=== PATIENT | male | born 1950 | race Caucasian/White ===

== ENCOUNTER 2018-08-16 23:53 | Inpatient (IN) ==
--- NOTE | 2018-08-17 00:09 | Emergency Department Note ---
Disposition Clinical Impression: Inability to perform activities of daily living, Generalized weakness, Frail elderly Altered mental status, unspecified Qualifiers: Altered mental status type: unspecified Qualified Code(s): R41.82 - Altered mental status, unspecified Fall Qualifiers: Encounter type: initial encounter Qualified Code(s): W19.XXXA - Unspecified fall, initial encounter Disposition: Admitted As Inpatient Referrals: NONE,PCP [Primary Care Provider] - Forms: ED Satisfaction Letter Time of Disposition: 03:14 Fall HPI - General Chief Complaint: ED Fall Stated Complaint: fall Time Seen by Provider: 08/17/18 00:04 Source: patient, EMS Mode of arrival: EMS Limitations: altered mental status Nursing Notes Reviewed: Yes Vital Signs Reviewed: Yes - History of Present Illness HPI Narrative: 67-year-old male presents by EMS from home for evaluation of a supposedly fall injury. According to EMS report, the patient lives with his brother EMS reported to the patient's nurse that the brother stated he had no intent of coming to the emergency department while the patient was being evaluated. Details of the fall are unclear. Although the patient denies any pain or injury at this time, he does appear quite altered, and as such, is not a reliable historian. Details of the fall are unclear. At the time of his arrival, he complains of no pain. Pt Subjective Complaint: fall Onset (ago): unknown Loss of Consciousness: unsure Prolonged Down Time?: unclear Context: unknown - Related Data Allergies Allergy/AdvReac Type Severity Reaction Status Date / Time Unable to Assess Allergy Unverified 08/17/18 00:19 Review of Systems: As Per HPI Limitations: ROS unobtainable due to patients medical condition (Altered mental status) Fall PMH - Past Medical History Medical history: Reports: other - Social History Smoking Status: Current every day smoker Alcohol use: Reports: none Drug use: Reports: none Physical Exam - General Limitations: no limitations General appearance: alert, in no apparent distress - Head Head exam: atraumatic, normocephalic, normal inspection - Expanded Head Exam Head exam physicial: Absent: laceration, abrasion, contusion, hematoma, raccoon eyes, Brumfield's sign - Eye Eye exam: Present: PERRL, scleral icterus (Mild) - Expanded Eye Exam Pupils: Bilateral: regular, round, reactive, size (2) - ENT ENT exam: mucous membranes dry - Neck Neck exam: Present: normal inspection, full ROM. Absent: tenderness - Chest Chest inspection: Present: normal inspection, symmetric chest wall rise - Respiratory Respiratory exam: Present: normal lung sounds bilaterally. Absent: respiratory distress, wheezes, stridor, accessory muscle use, prolonged expiratory phase - Cardiovascular Cardiovascular exam: Present: regular rate, normal rhythm, normal heart sounds - Abdominal Exam Abdominal exam: Present: soft, Non-Tender, normal bowel sounds - Rectal Exam It Applications Developer present during exam: Yes (DARBY Riley) Rectal exam: Absent: black stool, bloody stool, hemorrhoids, mass, tenderness - Extremities Exam Extremities exam: Present: normal inspection, full ROM. Absent: tenderness, pedal edema - Neurological Exam Neurological exam: Present: alert - Expanded Neurological Exam Coma Scale Eye Opening: Spontaneous Coma Scale Motor Response: Localizes to Pain Coma Scale Verbal Response: Confused Coma Scale Total: 13 - Skin Skin exam: Present: warm, dry, intact Course Course Narrative: 1205: The patient has no previous visits listed to this emergency department. Prior medical history is unknown at this time. I attempted to contact the number listed as the patient's emergency contact however this number was out of service. [id number]: The patient's brother in which he lives with his bedside. I have had discussion with the patient's brother. The patient's brother states that the patient has had multiple falls over the course of the past 3 weeks. He also states that he has noticed an increase in generalized weakness at home. He states the patient has no significant past medical history. He is not on any daily medications. The brother denies any alcohol or tobacco use at home. He does state that the patient has not been to a family doctor in "years". The brother does go on to state that the patient is having a difficult time caring for himself. The patient's brother also states that he himself is having a difficult time opening with the patient's care at home due to his own medical problems. 0245: I spoke with Dr. Molina, hospitalist on-call. He has accepted the patient for permission of the hospitalist care for further observation and management. Vital Signs Temperature 98.0 F 08/16/18 23:57 Pulse Rate 96 08/16/18 23:57 Respiratory Rate 18 08/16/18 23:57 Blood Pressure 154/90 08/16/18 23:57 O2 Sat by Pulse Oximetry 98 08/16/18 23:57 Temperature 98.0 F 08/16/18 23:57 Pulse Rate 92 08/17/18 02:58 Respiratory Rate 18 08/17/18 02:58 Blood Pressure 161/91 08/17/18 02:58 O2 Sat by Pulse Oximetry 100 08/17/18 02:58 Oxygen Delivery Oxygen Delivery Room Air Fall - Medical Records Medical records reviewed: Yes I reviewed the patient's medical records. - Lab Data Lab results reviewed: Yes I reviewed the patient's lab results. Result diagrams: 08/17/18 00:06 08/17/18 00:06 Lab Results 08/17/18 08/17/18 08/17/18 Range/Units 00:06 00:06 00:06 WBC 8.1 (4.3-11.1) K/mcL RBC 2.74 L (4.19-5.50) M/mcL Hgb 8.1 L (12.9-16.9) g/dL Hct 25.3 L (37.5-50.1) % MCV 92.3 (83.0-100.0) fL MCH 29.6 (28.0-33.3) pg MCHC 32.0 (31.6-35.5) g/dL RDW 15.9 H (11.5-14.5) % Plt Count 183 (140-400) K/mcL MPV 9.4 (9.4-12.4) fL Immature Gran % 0.5 (0-4) % Seg Neutrophils % 85.1 % Lymphocytes % 9.6 % Monocytes % 3.9 % Eosinophils % 0.7 % Basophils % 0.2 % Neutrophils # 6.9 (1.6-8.9) K/mcL Lymphocytes # 0.8 (0.6-4.6) K/mcL Monocytes # 0.3 (0.0-1.3) K/mcL Eosinophils # 0.1 (0.0-0.6) K/mcL Basophils # 0.0 (0.0-0.2) K/mcL PT 13.5 H (9.4-12.1) Seconds INR 1.2 APTT 29.6 (26.0-36.0) Seconds Sodium 145 (136-145) mEq/L Potassium 3.6 (3.5-5.1) mEq/L Chloride 112 H (98-107) mEq/L Carbon Dioxide 24 (23-29) mEq/L BUN 26 H (8-23) mg/dL Creatinine 1.56 H (0.70-1.30) mg/dL Est GFR ( Amer) 54 L (> 60) Est GFR (Non-Af Amer) 44 L (> 60) BUN/Creatinine Ratio 17 (6-26) Glucose 114 H (70-105) mg/dL Calculated Osmolality 306 H (280-300) Calcium 8.9 (8.6-10.3) mg/dL Total Bilirubin 1.9 H (0.3-1.0) mg/dL Direct Bilirubin 0.6 H (0.0-0.2) mg/dL Indirect Bilirubin 1.3 H (0.0-1.2) mg/dL AST 18 (13-39) Units/L ALT 15 (7-52) Units/L Alkaline Phosphatase 60 (34-104) Units/L Ammonia (16-53) mcmol/L Creatine Kinase 184 (30-223) Units/L Troponin I < 0.03 (< 0.04) ng/mL Serum Total Protein 6.2 L (6.4-8.9) g/dL Albumin 3.3 L (3.5-5.7) g/dL Globulin 2.9 (2.4-3.5) g/dL Albumin/Globulin Ratio 1.1 (1.1-2.2) Urine Color (Yellow) Urine Clarity (Clear) Urine pH (5.0-8.0) pH Units Ur Specific [place] (1.010-1.025) Urine Protein (Neg-Trace) mg/dL Urine Glucose (UA) (Normal) mg/dL Urine Ketones (Negative) mg/dL Urine Blood (Negative) Urine Nitrite (Negative) Urine Bilirubin (Negative) Urine Urobilinogen (Normal) mg/dL Ur Leukocyte Esterase (Negative) Urine Microscopic RBC (0-3) per hpf Urine Microscopic WBC (0-3) per hpf Ur Squamous Epith Cells (None-Few) per lpf Urine Bacteria (None-Few) per hpf Hyaline Casts (None-Few) per lpf Ur Culture Indicated? (NO) Stool Occult Bld Scrn (Negative) Urine Opiates Screen (Zgcrco=704) ng/mL Ur Barbiturates Screen (Rprzib=877) ng/mL Ur Phencyclidine Scrn (Cutoff=25) ng/mL Ur Amphetamines Screen (Stswfw=1762) ng/mL U Benzodiazepines Scrn (Xwndua=127) ng/mL Urine Cocaine Screen (Cutoff= 300) ng/mL U Marijuana (THC) Screen (Cutoff = 50) ng/mL Ur Drug Screen Interp Ethyl Alcohol < 10 (Less than 10) mg/dL 08/17/18 08/17/18 08/17/18 Range/Units 00:42 02:19 02:19 WBC (4.3-11.1) K/mcL RBC (4.19-5.50) M/mcL Hgb (12.9-16.9) g/dL Hct (37.5-50.1) % MCV (83.0-100.0) fL MCH (28.0-33.3) pg MCHC (31.6-35.5) g/dL RDW (11.5-14.5) % Plt Count (140-400) K/mcL MPV (9.4-12.4) fL Immature Gran % (0-4) % Seg Neutrophils % % Lymphocytes % % Monocytes % % Eosinophils % % Basophils % % Neutrophils # (1.6-8.9) K/mcL Lymphocytes # (0.6-4.6) K/mcL Monocytes # (0.0-1.3) K/mcL Eosinophils # (0.0-0.6) K/mcL Basophils # (0.0-0.2) K/mcL PT (9.4-12.1) Seconds INR APTT (26.0-36.0) Seconds Sodium (136-145) mEq/L Potassium (3.5-5.1) mEq/L Chloride (98-107) mEq/L Carbon Dioxide (23-29) mEq/L BUN (8-23) mg/dL Creatinine (0.70-1.30) mg/dL Est GFR ( Amer) (> 60) Est GFR (Non-Af Amer) (> 60) BUN/Creatinine Ratio (6-26) Glucose (70-105) mg/dL Calculated Osmolality (280-300) Calcium (8.6-10.3) mg/dL Total Bilirubin (0.3-1.0) mg/dL Direct Bilirubin (0.0-0.2) mg/dL Indirect Bilirubin (0.0-1.2) mg/dL AST (13-39) Units/L ALT (7-52) Units/L Alkaline Phosphatase (34-104) Units/L Ammonia 20 (16-53) mcmol/L Creatine Kinase (30-223) Units/L Troponin I (< 0.04) ng/mL Serum Total Protein (6.4-8.9) g/dL Albumin (3.5-5.7) g/dL Globulin (2.4-3.5) g/dL Albumin/Globulin Ratio (1.1-2.2) Urine Color Dark Yellow (Yellow) Urine Clarity Cloudy A (Clear) Urine pH 5.0 (5.0-8.0) pH Units Ur Specific [place] 1.024 (1.010-1.025) Urine Protein Negative (Neg-Trace) mg/dL Urine Glucose (UA) Normal (Normal) mg/dL Urine Ketones Trace H (Negative) mg/dL Urine Blood Negative (Negative) Urine Nitrite Negative (Negative) Urine Bilirubin Moderate H (Negative) Urine Urobilinogen Normal (Normal) mg/dL Ur Leukocyte Esterase Trace H (Negative) Urine Microscopic RBC 0-3 (0-3) per hpf Urine Microscopic WBC 0-3 (0-3) per hpf Ur Squamous Epith Cells Moderate H (None-Few) per lpf Urine Bacteria None Seen (None-Few) per hpf Hyaline Casts None Seen (None-Few) per lpf Ur Culture Indicated? YES A (NO) Stool Occult Bld Scrn (Negative) Urine Opiates Screen Negative (Pvwngk=068) ng/mL Ur Barbiturates Screen Negative (Puiboj=665) ng/mL Ur Phencyclidine Scrn Negative (Cutoff=25) ng/mL Ur Amphetamines Screen Negative (Omsuai=4042) ng/mL U Benzodiazepines Scrn Negative (Vatpxm=571) ng/mL Urine Cocaine Screen Negative (Cutoff= 300) ng/mL U Marijuana (THC) Screen Negative (Cutoff = 50) ng/mL Ur Drug Screen Interp See Below Ethyl Alcohol (Less than 10) mg/dL 08/17/18 Range/Units 03:08 WBC (4.3-11.1) K/mcL RBC (4.19-5.50) M/mcL Hgb (12.9-16.9) g/dL Hct (37.5-50.1) % MCV (83.0-100.0) fL MCH (28.0-33.3) pg MCHC (31.6-35.5) g/dL RDW (11.5-14.5) % Plt Count (140-400) K/mcL MPV (9.4-12.4) fL Immature Gran % (0-4) % Seg Neutrophils % % Lymphocytes % % Monocytes % % Eosinophils % % Basophils % % Neutrophils # (1.6-8.9) K/mcL Lymphocytes # (0.6-4.6) K/mcL Monocytes # (0.0-1.3) K/mcL Eosinophils # (0.0-0.6) K/mcL Basophils # (0.0-0.2) K/mcL PT (9.4-12.1) Seconds INR APTT (26.0-36.0) Seconds Sodium (136-145) mEq/L Potassium (3.5-5.1) mEq/L Chloride (98-107) mEq/L Carbon Dioxide (23-29) mEq/L BUN (8-23) mg/dL Creatinine (0.70-1.30) mg/dL Est GFR ( Amer) (> 60) Est GFR (Non-Af Amer) (> 60) BUN/Creatinine Ratio (6-26) Glucose (70-105) mg/dL Calculated Osmolality (280-300) Calcium (8.6-10.3) mg/dL Total Bilirubin (0.3-1.0) mg/dL Direct Bilirubin (0.0-0.2) mg/dL Indirect Bilirubin (0.0-1.2) mg/dL AST (13-39) Units/L ALT (7-52) Units/L Alkaline Phosphatase (34-104) Units/L Ammonia (16-53) mcmol/L Creatine Kinase (30-223) Units/L Troponin I (< 0.04) ng/mL Serum Total Protein (6.4-8.9) g/dL Albumin (3.5-5.7) g/dL Globulin (2.4-3.5) g/dL Albumin/Globulin Ratio (1.1-2.2) Urine Color (Yellow) Urine Clarity (Clear) Urine pH (5.0-8.0) pH Units Ur Specific [place] (1.010-1.025) Urine Protein (Neg-Trace) mg/dL Urine Glucose (UA) (Normal) mg/dL Urine Ketones (Negative) mg/dL Urine Blood (Negative) Urine Nitrite (Negative) Urine Bilirubin (Negative) Urine Urobilinogen (Normal) mg/dL Ur Leukocyte Esterase (Negative) Urine Microscopic RBC (0-3) per hpf Urine Microscopic WBC (0-3) per hpf Ur Squamous Epith Cells (None-Few) per lpf Urine Bacteria (None-Few) per hpf Hyaline Casts (None-Few) per lpf Ur Culture Indicated? (NO) Stool Occult Bld Scrn Negative (Negative) Urine Opiates Screen (Fulmsx=708) ng/mL Ur Barbiturates Screen (Csilqq=393) ng/mL Ur Phencyclidine Scrn (Cutoff=25) ng/mL Ur Amphetamines Screen (Htjxyg=6318) ng/mL U Benzodiazepines Scrn (Epqvgk=894) ng/mL Urine Cocaine Screen (Cutoff= 300) ng/mL U Marijuana (THC) Screen (Cutoff = 50) ng/mL Ur Drug Screen Interp Ethyl Alcohol (Less than 10) mg/dL - Radiology Data Radiology results reviewed: Yes I reviewed the patient's radiology results. Cervical Spine CT 08/17/18 00:06 IMPRESSION: Degenerative changes with no acute cervical spine fracture. There is slight posterior position of the tip of the clivus in relation to the odontoid process. There is spondylosis/calcification adjacent to the tip of the clivus and this finding is likely chronic. Correlation with MRI of the craniocervical junction may be helpful. Motion degraded study. D/ / Mihir Messina MD / Mihir Messina MD Interpreting Provider: Mihir Messina MD Chest X-Ray 08/17/18 00:06 IMPRESSION: No acute process. D/ / Cecelia Hillman MD / Cecelia Hillman MD Interpreting Provider: Cecelia Hillman MD Head CT 08/17/18 00:06 IMPRESSION: Motion degraded study. Moderate generalized atrophy and severe chronic small vessel ischemic white matter disease. No acute intracranial abnormality. D/ / Mihir Messina MD / Mihir Messina MD Interpreting Provider: Mihir Messina MD Abdomen/Pelvis CT 08/17/18 01:40 IMPRESSION: Motion artifact limits detailed evaluation of the abdominal contents. Normal liver size and contour. No bile duct dilatation. Nonobstructive bilateral nephrolithiasis. Colonic diverticulosis without evidence of diverticulitis. Advanced thoracolumbar spondylosis with L5 spondylolysis and grade 1 spondylolisthesis. Low-attenuation cardiac blood pole may be seen with underlying anemia. D/ / Real Puckett / Real Puckett Interpreting Provider: Real Puckett - EKG Data EKG attestation: Yes I reviewed and interpreted this EKG. EKG results narrative: EKG reviewed by Dr. medina as well. EKG shows a sinus rhythm at a rate of 89 bpm. IL interval 166, QRS duration 80, QT/QTc interval 369/449. No ectopy noted. No ST elevation. Attestation Statement - Attestation Attestation: I have personally performed a face to face evaluation on this patient. I have reviewed and agree with the care plan. History and Exam by me shows: Pronounced CVA tenderness, with lab evaluation consistent with pyelonephritis ECG initially with large baseline wander making interpretation difficult, but repeat EKG showed no evidence of coronary occlusion Elevated troponin concerning for non-ST elevation CO She was started on appropriate antibiotics for pyelonephritis, aspirin and heparin for likely non-ST elevation CO, and admitted to the hospital
[2018-08-17 00:56] LABS: Basophils % 0.2 %; Eosinophils # 0.1 K/mcL (0.0-0.6); Eosinophils % 0.7 %; Hematocrit 25.3 % (37.5-50.1); Hemoglobin 8.1 g/dL (12.9-16.9); Immature Granulocytes % 0.5 % (0-4); Lymphocytes # 0.8 K/mcL (0.6-4.6); Lymphocytes % 9.6 %; Mean Corpuscular Hemoglobin 29.6 pg (28.0-33.3); Mean Corpuscular Volume 92.3 fL (83.0-100.0); Mean Platelet Volume 9.4 fL (9.4-12.4); Monocytes # 0.3 K/mcL (0.0-1.3); Monocytes % 3.9 %; Neutrophils # 6.9 K/mcL (1.6-8.9); Platelet Count 183 K/mcL (140-400); Red Blood Count 2.74 M/mcL (4.19-5.50); Red Cell Distribution Width 15.9 % (11.5-14.5); Segmented Neutrophils % 85.1 %
[2018-08-17 01:06] LABS: INR 1.2; Prothrombin Time 13.5 Seconds (9.4-12.1)
[2018-08-17 01:09] LABS: Activated Partial Thrombo Time 29.6 Seconds (26.0-36.0)
[2018-08-17 01:19] LABS: Alanine Aminotransferase 15 Units/L (7-52); Albumin 3.3 g/dL (3.5-5.7); Albumin/Globulin Ratio 1.1 (1.1-2.2); Alkaline Phosphatase 60 Units/L (34-104); Aspartate Amino Transferase 18 Units/L (13-39); BUN/Creatinine Ratio 17 (6-26); Bilirubin,Direct 0.6 mg/dL (0.0-0.2); Bilirubin,Indirect 1.3 mg/dL (0.0-1.2); Bilirubin,Total 1.9 mg/dL (0.3-1.0); Blood Urea Nitrogen 26 mg/dL (8-23); Calcium 8.9 mg/dL (8.6-10.3); Carbon Dioxide 24 mEq/L (23-29); Chloride 112 mEq/L (98-107); Creatine Kinase 184 Units/L (30-223); Ethanol < 10 mg/dL (Less than 10); Globulin 2.9 g/dL (2.4-3.5); Glucose 114 mg/dL (70-105); Osmolality,Calculated 306 (280-300); Potassium 3.6 mEq/L (3.5-5.1); Sodium 145 mEq/L (136-145); Total Protein 6.2 g/dL (6.4-8.9); Troponin I < 0.03 ng/mL (< 0.04); eGFR For Non-African Americans 44 (> 60)
[2018-08-17 02:27] LABS: Bilirubin,Urine Moderate (Negative); Blood,Urine Negative (Negative); Clarity,Urine Cloudy (Clear); Glucose,Urine (UA) Normal (Normal); Ketones,Urine Trace mg/dL (Negative); Leukocyte Esterase,Urine Trace (Negative); Nitrite,Urine Negative (Negative); Protein,Urine Negative (Neg-Trace); Specific Gravity,Urine 1.024 (1.010-1.025); Urobilinogen,Urine Normal (Normal)
[2018-08-17 02:29] LABS: Bacteria,Urine None Seen per hpf (None-Few); Hyaline Casts,Urine None Seen per lpf (None-Few); RBC,Urine 0-3 per hpf (0-3); Squamous Epithelial Cell,Urine Moderate per lpf (None-Few); WBC,Urine 0-3 per hpf (0-3)
[2018-08-17 02:30] LABS: Color,Urine Dark Yellow (Yellow)
[2018-08-17 02:38] LABS: Amphetamine Screen,Urine Negative ng/mL (Cutoff=1000); Barbiturate Screen,Urine Negative ng/mL (Cutoff=200); Benzodiazepines Screen,Urine Negative ng/mL (Cutoff=200); Cannabinoid Screen,Urine Negative ng/mL (Cutoff = 50); Cocaine Screen,Urine Negative ng/mL (Cutoff= 300); Opiate Screen,Urine Negative ng/mL (Cutoff=300); Phencyclidine Screen,Urine Negative ng/mL (Cutoff=25)
[2018-08-17] MEDS ORDERED: Naloxone 0.4 MG/ML INJ IVP PRN (07:37)
--- NOTE | 2018-08-17 08:36 | Internal Med History&Physical ---
Date of Encounter: 08/17/18 Time of Encounter: 08:00 Internal Medicine - H&P: HPI Chief complaint: recurrent falls Admitted From: Home History of present illness: Mr. Medina is a 67 year old male with no significant past medical history was brought in by his brother to the ED with a chief complaint of recurrent falls. Patient denies any episodes of fall when asked but according to the ED documentation, the patient has had multiple falls over the course of the last 3 weeks. Associated with increasing generalized weakness. He currently denies any focal complaints including chest pain, shortness of breath, LE swelling, cough, sputum production, abdominal pain, change in bowel habits, melena, hematochezia, bright red blood per rectum, or dysuria. There is no reported history of alcohol or tobacco abuse. No fever/chills, nausea/vomiting, or sick contacts. It also appears that the patient is no longer able to care for himself and his mother no longer is able to help him as much due to his own medical conditions. In the ED, he was afebrile and hemodynamically stable. Labs notable for normochromic normocytic anemia with hemoglobin of 8.1, creatinine 1.56 (baseline unavailable), and slightly increased total bilirubin of 1.9 with normal AST/ALT/ALP. Urinalysis was positive for moderate amount of bilirubin and trace amount of leukocyte esterase. Urine tox screen was negative and he did not have any detectable amount of alcohol. Stool occult was also negative. Imaging studies were largely unremarkable for any acute processes, except for slight posterior positioning ot the tip of the clivus in relation to odontoid process. He was admitted for further management. Past Med Surg Social Fam HX - Past Medical History Source: old records reviewed Medical history: other - Past Surgical History Additional surgical history: PT unable to state - Social History Smoking Status: Current every day smoker Smokeless Tobacco Status: No Alcohol use: none Drug use: none Internal Medicine - H&P: Meds 3 Allergy/AdvReac Type Severity Reaction Status Date / Time Unable to Assess Allergy Unverified 08/17/18 00:19 All Systems PM: A 10-system review of systems was performed and is negative for pertinent findings except as documented above in the HPI. - Constitutional Vitals: Temp Pulse Resp BP Pulse Ox 98 F 85 16 149/90 98 08/17/18 07:23 08/17/18 07:23 08/17/18 07:23 08/17/18 07:23 08/17/18 07:23 Exam: General: Alert and oriented to self and place, not in acute distress. HEENT:EOM, pupils equal, round and reactive. Cardiovascular:Normal S1 & S2, No JVD. Pulse regular. Lungs: clear to auscultation, no wheezes/rales Abdomen:Soft, non-tender, no rigidity. Extremities:No deformity or swelling Neurological:CN II-XII intact, power and sensation fully intact in all 4 limbs. No cerebellar signs, pronator drift -ve, Babinski downgoing bilaterally Skin:Normal color, no rash, no lesions. Pulses:Carotid and radial pulses normal +2. Rest of the physical exam is non contributory Internal Med - H&P Results - Labs CBC & Chem 7: 08/17/18 00:06 08/17/18 00:06 - Assessment and plan (1) Failure to thrive Current Visit: Yes Status: Acute Assessment and plan: Appears to be chronic, may have underlying undiagnosed dementia with the amount of cerebral volume loss and chronic microvascular ischemic white matter changes seen on CT head Does not appear to have any source of infection TSH, B12/folate PT/OT SW for placement Qualifiers: Failure to thrive age range: in adult Qualified Code(s): R62.7 - Adult failure to thrive (2) Fall Current Visit: Yes Status: Acute Assessment and plan: As above Qualifiers: Encounter type: subsequent encounter Qualified Code(s): W19.XXXD - Unspecified fall, subsequent encounter (3) Anemia Current Visit: Yes Status: Acute Assessment and plan: Normochromic and normocytic. FOBT negative, hemodynamically stable no evidence of cirrhosis on imaging Will get iron study, B12/folate, TSH Qualifiers: Anemia type: unspecified type Qualified Code(s): D64.9 - Anemia, unspecified (4) Elevated serum creatinine Current Visit: Yes Status: Acute Assessment and plan: Unclear whether this represents acute kidney injury versus chronic kidney disease. Trial of IV fluid today and monitor creatinine. Avoid nephrotoxins. (5) Abnormal CT of spine Current Visit: Yes Status: Acute Assessment and plan: Suggestion of posteriorly positioned tip of clivus in relation to the odontoid process MRI C-spine for further evaluation (6) DVT prophylaxis Current Visit: Yes Status: Acute Assessment and plan: SCD - Time Spent With Patient Total time spent is greater than 50% in coordination of care (as documented) at patient's floor/unit and/or counseling patient:
[2018-08-17 09:05] LABS: % Iron Saturation 15 % (20-55); Iron 36 mcg/dL (65-175); Transferrin 169 mg/dL (203-362)
[2018-08-17 09:23] LABS: Folate 5.3 ng/mL (3.0-16.0)
[2018-08-17] MEDS: Ringers Solution, Lactated 1,000 ML IVC SCH ×2 (09:31→17:14)
[2018-08-17] MEDS ORDERED: *HR* Labetalol 20 MG/4 ML SYRINGE IVP PRN (18:13)
[2018-08-18 05:16] LABS: Hematocrit 21.5 % (37.5-50.1); Hemoglobin 6.9 g/dL (12.9-16.9); Mean Corpuscular HGB Conc 32.1 g/dL (31.6-35.5); Mean Corpuscular Hemoglobin 29.9 pg (28.0-33.3); Mean Corpuscular Volume 93.1 fL (83.0-100.0); Mean Platelet Volume 10.3 fL (9.4-12.4); Platelet Count 161 K/mcL (140-400); Red Blood Count 2.31 M/mcL (4.19-5.50); Red Cell Distribution Width 16.3 % (11.5-14.5)
[2018-08-18 05:38] LABS: BUN/Creatinine Ratio 16 (6-26); Blood Urea Nitrogen 21 mg/dL (8-23); Calcium 8.6 mg/dL (8.6-10.3); Carbon Dioxide 24 mEq/L (23-29); Chloride 115 mEq/L (98-107); Glucose 81 mg/dL (70-105); Magnesium 2.5 mg/dL (1.6-2.6); Osmolality,Calculated 304 (280-300); Potassium 3.9 mEq/L (3.5-5.1); Sodium 146 mEq/L (136-145); eGFR For Non-African Americans 54 (> 60)
--- NOTE | 2018-08-18 09:35 | Internal Med Progress Note ---
Hospitalist Progress Note - Encounter Date of Encounter: 08/18/18 Time of Encounter: 09:33 - Subjective Interval History: Seen and examined at bedside today. No acute changes overnight. The patient remains confused and unable to participate in examination. Unclear of baseline mental status. It is reported that the patient lives with his brother. Given the patient's altered mental state and will discuss his care with next of kin when able. - Exam Vitals: Temp Pulse Resp BP Pulse Ox 98.0 F 74 15 157/83 97 08/18/18 06:35 08/18/18 06:35 08/18/18 06:35 08/18/18 06:35 08/18/18 06:35 Exam: General: Alert and oriented to self and place, disoriented to date, situation. He is not in acute distress. HEENT:EOM, pupils equal, round and reactive. Cardiovascular:Normal S1 & S2, No JVD. Pulse regular. Lungs: clear to auscultation, no wheezes/rales Abdomen:Soft, non-tender, no rigidity. Extremities:No deformity or swelling Neurological:CN II-XII intact, Skin:Normal color, no rash, no lesions. Pulses:Carotid and radial pulses normal +2. Rest of the physical exam is non contributory - Assessment and Plan (1) Failure to thrive Current Visit: Yes Status: Acute Assessment and Plan: Unclear if patient's baseline status, appears to have undiagnosed dementia -Imaging reveals cerebral volume loss and chronic microvascular ischemic white matter Presents following a fall at home, his brother reports that he has had multiple falls at home in the last couple of months; weakness, fatigue and failure to thrive chronic Does not appear to have any obvious source of infection TSH, B12/folate all within normal limits, TSH 1.581, folate 5.3, vitamin B12 1058 PT/OT--awaiting evaluation SW for placement (2) Fall Current Visit: Yes Status: Acute Assessment and Plan: as above (3) Anemia Current Visit: Yes Status: Acute Assessment and Plan: Normochromic and normocytic Unclear whether acute or chronic FOBT negative, hemodynamically stable no evidence of cirrhosis on imaging Iron saturation 15, serum iron 36, transferrin 169 We will start oral iron supplementation now H&H worsening overnight--6.9/21.5, no obvious episodes of bleeding Likely dilutional with IVF volume replacement Type and screen He get blood cultures sent Discussed with patient need for transfusion given the fact that he is symptomatic Transfuse PRBC 1 Recheck H&H this afternoon then every 6 after transfusion (4) Abnormal CT of spine Current Visit: Yes Status: Acute Assessment and Plan: Suggestion of posteriorly positioned tip of clivus in relation to the odontoid process MRI C-spine for further evaluation--pending completion (5) Elevated serum creatinine Current Visit: Yes Status: Acute Assessment and Plan: Unclear whether this represents acute kidney injury versus chronic kidney disease. Continue IVF, renal function improving, monitor S cr daily Avoid nephrotoxins. (6) DVT prophylaxis Current Visit: Yes Status: Acute Assessment and Plan: Continue SCD's, out of bed 3 times a day to chair, PT OT as tolerated - Time Spent with Patient Total time spent is greater than 50% in coordination of care (as documented) at patient's floor/unit and/or counseling patient: less than 15 minutes Plan of Care Discussed with: patient Internal Medicine: Result - Labs CBC & Chem 7: 08/18/18 04:23 08/18/18 04:23 Labs: Short CBC 08/18/18 Range/Units 04:23 WBC 5.4 (4.3-11.1) K/mcL Hgb 6.9 L (12.9-16.9) g/dL Hct 21.5 L (37.5-50.1) % Plt Count 161 (140-400) K/mcL BMP 08/18/18 04:23 Sodium 146 H Potassium 3.9 Chloride 115 H Carbon Dioxide 24 BUN 21 Creatinine 1.32 H Glucose 81 Calcium 8.6 - ABG Interpretation ABG results: PT/INR, D-dimer PT 13.5 Seconds (9.4-12.1) H 08/17/18 00:06 Consult Discharge Plan - Plan Referrals: NONE,PCP [Primary Care Provider] - (1) Failure to thrive Qualifiers: Failure to thrive age range: in adult Qualified Code(s): R62.7 - Adult failure to thrive (2) Fall Qualifiers: Encounter type: subsequent encounter Qualified Code(s): W19.XXXD - Unspecified fall, subsequent encounter (3) Anemia Qualifiers: Anemia type: unspecified type Qualified Code(s): D64.9 - Anemia, unspecified
[2018-08-18] MEDS: 0.9 % Sodium Chloride 1,000 ML IVC SCH ×2 (13:00→14:04)
[2018-08-18] MEDS: Ringers Solution, Lactated 1,000 ML IVC SCH (13:58)
[2018-08-18] MEDS ORDERED: 0.9 % Sodium Chloride 250 ML ONE (14:28)
[2018-08-18] MEDS ORDERED: Naloxone 0.4 MG/ML INJ IVP PRN (14:32)
[2018-08-18 19:35] LABS: Hematocrit 27.4 % (37.5-50.1)
[2018-08-18 19:40] LABS: Hemoglobin 8.7 g/dL (12.9-16.9)
[2018-08-19 01:53] LABS: BUN/Creatinine Ratio 15 (6-26); Blood Urea Nitrogen 19 mg/dL (8-23); Carbon Dioxide 24 mEq/L (23-29); Chloride 112 mEq/L (98-107); Glucose 98 mg/dL (70-105); Osmolality,Calculated 298 (280-300); Potassium 3.5 mEq/L (3.5-5.1); Sodium 143 mEq/L (136-145); eGFR For Non-African Americans 57 (> 60)
[2018-08-19 03:22] LABS: Basophils % 0.3 %; Eosinophils # 0.1 K/mcL (0.0-0.6); Eosinophils % 2.4 %; Immature Granulocytes % 0.5 % (0-4); Lymphocytes # 0.8 K/mcL (0.6-4.6); Lymphocytes % 14.2 %; Mean Corpuscular HGB Conc 31.9 g/dL (31.6-35.5); Mean Corpuscular Hemoglobin 29.4 pg (28.0-33.3); Mean Corpuscular Volume 92.3 fL (83.0-100.0); Mean Platelet Volume 10.2 fL (9.4-12.4); Monocytes # 0.2 K/mcL (0.0-1.3); Monocytes % 3.8 %; Neutrophils # 4.5 K/mcL (1.6-8.9); Platelet Count 153 K/mcL (140-400); Red Blood Count 2.72 M/mcL (4.19-5.50); Segmented Neutrophils % 78.8 %
[2018-08-19 03:23] LABS: Hematocrit 24.6 % (37.5-50.1); Hemoglobin 7.9 g/dL (12.9-16.9)
[2018-08-19 07:01] LABS: Hematocrit 23.8 % (37.5-50.1); Hemoglobin 7.7 g/dL (12.9-16.9)
[2018-08-19] MEDS: Ringers Solution, Lactated 1,000 ML IVC SCH (07:48)
[2018-08-19 13:17] LABS: Hematocrit 27.4 % (37.5-50.1); Hemoglobin 8.6 g/dL (12.9-16.9)
--- NOTE | 2018-08-19 14:47 | Internal Med Progress Note ---
Hospitalist Progress Note - Encounter Date of Encounter: 08/19/18 Time of Encounter: 11:00 - Subjective Interval History: A shunt was seen and examined at bedside. Currently presently confused oriented to name only following simple commands. Has been participating in physical therapy evaluated by speech therapy currently on honey thickened liquids - ATE 50% of lunch today. Awaiting ECF placement-brothers to make decision today and notify social work manager on choice of placement - Exam Vitals: Temp Pulse Resp BP Pulse Ox 98.1 F 75 18 157/95 98 08/19/18 10:55 08/19/18 10:55 08/19/18 10:55 08/19/18 10:55 08/19/18 10:55 Exam: General: Alert and oriented to self and place, disoriented to date, situation. Pleasant cooperative HEENT:EOM, pupils equal, round and reactive. Cardiovascular:Normal S1 & S2, No JVD. Pulse regular. Lungs: clear to auscultation, no wheezes/rales Abdomen:Soft, non-tender, no rigidity. Extremities:No deformity or swelling Neurological:CN II-XII intact, Skin:Normal color, no rash, no lesions. Pulses:Carotid and radial pulses normal +2. Rest of the physical exam is non contributory - Assessment and Plan (1) Fall Current Visit: Yes Status: Acute Assessment and Plan: as above (2) Failure to thrive Current Visit: Yes Status: Acute Assessment and Plan: Unclear if patient's baseline status, appears to have undiagnosed dementia -Imaging reveals cerebral volume loss and chronic microvascular ischemic white matter Presents following a fall at home, his brother reports that he has had multiple falls at home in the last couple of months; weakness, fatigue and failure to thrive chronic Does not appear to have any obvious source of infection TSH, B12/folate all within normal limits, TSH 1.581, folate 5.3, vitamin B12 1058 PT/Ot evaluation SW for placement 08/19 PTOT evaluation recommending ECF placement awaiting brothers choice of facility program services assistant consulted for discharge planning Speech therapy recommending honey thickened liquids-patient did consume 50% of meal today we will stop IV fluids for now (3) Anemia Current Visit: Yes Status: Acute Assessment and Plan: Normochromic and normocytic Unclear whether acute or chronic FOBT negative, hemodynamically stable no evidence of cirrhosis on imaging Iron saturation 15, serum iron 36, transferrin 169 We will start oral iron supplementation now H&H worsening overnight--6.9/21.5, no obvious episodes of bleeding Likely dilutional with IVF volume replacement Type and screen He get blood cultures sent Discussed with patient need for transfusion given the fact that he is symptomatic Transfuse PRBC 1 Recheck H&H this afternoon then every 6 after transfusion 08/19 no active bleeding noted hemoglobin stable at this time we will continue to monitor continue with iron supplements (4) Abnormal CT of spine Current Visit: Yes Status: Acute Assessment and Plan: Suggestion of posteriorly positioned tip of clivus in relation to the odontoid process MRI C-spine for further evaluation--pending completion (5) Elevated serum creatinine Current Visit: Yes Status: Acute (6) DVT prophylaxis Current Visit: Yes Status: Acute - Time Spent with Patient Total time spent is greater than 50% in coordination of care (as documented) at patient's floor/unit and/or counseling patient: Internal Medicine: Result - Labs CBC & Chem 7: 08/19/18 13:04 08/19/18 01:12 Labs: Short CBC 08/18/18 08/19/18 08/19/18 Range/Units 19:22 01:12 06:37 WBC 5.8 (4.3-11.1) K/mcL Hgb 8.7 L D 7.9 L 7.7 L (12.9-16.9) g/dL Hct 27.4 L 24.6 L 23.8 L (37.5-50.1) % Plt Count 153 (140-400) K/mcL Neutrophils # 4.5 (1.6-8.9) K/mcL 08/19/18 Range/Units 13:04 WBC (4.3-11.1) K/mcL Hgb 8.6 L (12.9-16.9) g/dL Hct 27.4 L (37.5-50.1) % Plt Count (140-400) K/mcL Neutrophils # (1.6-8.9) K/mcL BMP 08/19/18 01:12 Sodium 143 Potassium 3.5 Chloride 112 H Carbon Dioxide 24 BUN 19 Creatinine 1.26 Glucose 98 Calcium 8.0 L - ABG Interpretation ABG results: PT/INR, D-dimer PT 13.5 Seconds (9.4-12.1) H 08/17/18 00:06 Consult Discharge Plan - Plan Referrals: NONE,PCP [Primary Care Provider] - (1) Fall Qualifiers: Encounter type: subsequent encounter Qualified Code(s): W19.XXXD - Unspecified fall, subsequent encounter (2) Failure to thrive Qualifiers: Failure to thrive age range: in adult Qualified Code(s): R62.7 - Adult failure to thrive (3) Anemia Qualifiers: Anemia type: unspecified type Qualified Code(s): D64.9 - Anemia, unspecified
[2018-08-19 16:41] LABS: Enterococcus by PCR Not Detected (Not Detect); Staphylococcus aureus by PCR Not Detected (Not Detect); Staphylococcus by PCR Not Detected (Not Detect); Streptococcus agalactiae(B)PCR Not Detected (Not Detect); Streptococcus by PCR Not Detected (Not Detect); blaKPC Carbapenem-Resist Gene Not Detected (Not Detect); mecA Methicillin-Resist Gene Not Detected (Not Detect); vanA/B Vancomycin-Resist Genes Not Detected (Not Detect)
[2018-08-19 16:42] LABS: Acinetobacter baumannii by PCR Not Detected (Not Detect); Candida albicans by PCR Not Detected (Not Detect); Candida glabrata by PCR Not Detected (Not Detect); Candida krusei by PCR Not Detected (Not Detect); Candida parapsilosis by PCR Not Detected (Not Detect); Candida tropicalis by PCR Not Detected (Not Detect); Enterobacter cloacae Cmplx PCR Not Detected (Not Detect); Enterobacteriaceae by PCR Not Detected (Not Detect); Escherichia coli by PCR Not Detected (Not Detect); Klebsiella oxytoca by PCR Not Detected (Not Detect); Klebsiella pneumoniae by PCR Not Detected (Not Detect); Proteus by PCR Not Detected (Not Detect); Pseudomonas aeruginosa by PCR Not Detected (Not Detect); Serratia marcescens by PCR Not Detected (Not Detect); Streptococcus pneumoniae PCR Not Detected (Not Detect); Streptococcus pyogenes (A) PCR Not Detected (Not Detect)
--- NOTE | 2018-08-19 17:38 | Electrocardiograph Report ---
[place] [id number] Test Date: 2018-08-17 Pat Name: Edwin Medina Department: [id number] Room: 3B Gender: M Lion Hunter: : 1950 Requested By: Arturo Magaña Order Number: [id number] Reading MD: Boris Diaz Measurements Intervals [place] Rate: 89 P: 57 CO: 166 QRS: 47 QRSD: 80 T: 70 QT: 369 QTc: 449 Interpretive Statements Sinus rhythm Baseline artifact Electronically Signed On 08-19-2018 17:37:21 EDT by Boris Diaz
[2018-08-19 19:03] LABS: Hematocrit 26.4 % (37.5-50.1); Hemoglobin 8.3 g/dL (12.9-16.9)
[2018-08-19] MEDS: cefTRIAXone 1,000 MG in Water for inj. (sterile) 20 ML 10 ML IVP SCH (19:48)
[2018-08-20 05:51] LABS: Basophils % 0.2 %; Eosinophils # 0.1 K/mcL (0.0-0.6); Eosinophils % 2.2 %; Hematocrit 24.3 % (37.5-50.1); Hemoglobin 7.9 g/dL (12.9-16.9); Immature Granulocytes % 0.3 % (0-4); Lymphocytes # 0.8 K/mcL (0.6-4.6); Lymphocytes % 12.2 %; Mean Corpuscular HGB Conc 32.5 g/dL (31.6-35.5); Mean Corpuscular Hemoglobin 29.6 pg (28.0-33.3); Mean Platelet Volume 9.5 fL (9.4-12.4); Monocytes # 0.2 K/mcL (0.0-1.3); Monocytes % 3.5 %; Neutrophils # 5.1 K/mcL (1.6-8.9); Platelet Count 138 K/mcL (140-400); Red Blood Count 2.67 M/mcL (4.19-5.50); Red Cell Distribution Width 15.8 % (11.5-14.5); Segmented Neutrophils % 81.6 %
[2018-08-20 06:13] LABS: BUN/Creatinine Ratio 11 (6-26); Blood Urea Nitrogen 13 mg/dL (8-23); Calcium 8.1 mg/dL (8.6-10.3); Carbon Dioxide 27 mEq/L (23-29); Chloride 111 mEq/L (98-107); Glucose 97 mg/dL (70-105); Osmolality,Calculated 294 (280-300); Potassium 3.8 mEq/L (3.5-5.1); Sodium 142 mEq/L (136-145); eGFR For Non-African Americans > 60 (> 60)
[2018-08-20 09:28] LABS: Bilirubin,Urine Small (Negative); Blood,Urine Negative (Negative); Clarity,Urine Clear (Clear); Color,Urine Dark Yellow (Yellow); Glucose,Urine (UA) Normal (Normal); Ketones,Urine Negative (Negative); Leukocyte Esterase,Urine Negative (Negative); Nitrite,Urine Negative (Negative); Protein,Urine Negative (Neg-Trace); Specific Gravity,Urine 1.029 (1.010-1.025)
--- NOTE | 2018-08-20 11:50 | Internal Med Progress Note ---
Hospitalist Progress Note - Encounter Date of Encounter: 08/20/18 Time of Encounter: 11:50 - Subjective Interval History: Patient was seen and examined at bedside. Currently presently confused oriented to name only following simple commands. Has been participating in physical therapy evaluated by speech therapy currently on honey thickened liquids - Awaiting ECF placement- - Exam Vitals: Temp Pulse Resp BP Pulse Ox 98.8 F 75 16 169/95 98 08/20/18 11:21 08/20/18 11:21 08/20/18 11:21 08/20/18 11:21 08/20/18 11:21 Exam: General: Alert and oriented to self and place, disoriented to date, situation. Pleasant cooperative HEENT:EOM, pupils equal, round and reactive. Cardiovascular:Normal S1 & S2, No JVD. Pulse regular. Lungs: clear to auscultation, no wheezes/rales Abdomen:Soft, non-tender, no rigidity. Extremities:No deformity or swelling Neurological:CN II-XII intact, Skin:Normal color, no rash, no lesions. Pulses:Carotid and radial pulses normal +2. Rest of the physical exam is non contributory - Assessment and Plan (1) Fall Current Visit: Yes Status: Acute Assessment and Plan: Patient has had multiple falls over the past 3 weeks. This could be multifactorial He has not been to a physician for several years unclear patient 's neurological baseline status, he may have undiagnosed dementia. CT of has negative for any acute intracranial abnormalities we will consult neurology to rule out any neurological processes It does appear that he has spinal stenosis which may be contributing to his falls-orthospine has been consulted Patient has been experiencing symptomatic anemia-with shortness of breath he did require blood transfusion does not appear to be actively bleeding we will continue to monitor closely continue with iron supplements consider Hem/onc consult Infectious process may be contributing to falls Patient did have a positive blood culture for gram-negative rods as a present there is no infectious source- he is afebrile with no leukocytosis urinalysis is normal chest x-ray with no acute process respiratory panel negative. CT of Abdomen within normal limits we will monitor closely (2) Failure to thrive Current Visit: Yes Status: Acute Assessment and Plan: Unclear if patient's baseline status, appears to have undiagnosed dementia -Imaging reveals cerebral volume loss and chronic microvascular ischemic white matter Presents following a fall at home, his brother reports that he has had multiple falls at home in the last couple of months; weakness, fatigue and failure to thrive chronic Does not appear to have any obvious source of infection TSH, B12/folate all within normal limits, TSH 1.581, folate 5.3, vitamin B12 1058 PT/Ot evaluation SW for placement 08/19 PTOT evaluation recommending ECF placement awaiting brothers choice of facility guest services associate consulted for discharge planning Speech therapy recommending honey thickened liquids-patient did consume 50% of meal today we will stop IV fluids for now 08/20 Patient has been consuming part of his meals I am concerned about his dental hygiene which may be interfering with his capability to eat-will need follow-up with dentist as outpatient guest services associate consult for discharge planning-will be discharged to ECF Speech therapy recommending honey thickened liquids patient did consume 80% of dinner tonight (3) Anemia Current Visit: Yes Status: Acute Assessment and Plan: Normochromic and normocytic Unclear whether acute or chronic FOBT negative, hemodynamically stable no evidence of cirrhosis on imaging Iron saturation 15, serum iron 36, transferrin 169 We will start oral iron supplementation now H&H worsening overnight--6.9/21.5, no obvious episodes of bleeding Likely dilutional with IVF volume replacement Type and screen He get blood cultures sent Discussed with patient need for transfusion given the fact that he is symptomatic Transfuse PRBC 1 Recheck H&H this afternoon then every 6 after transfusion 08/19 no active bleeding noted hemoglobin stable at this time we will continue to monitor continue with iron supplements 08/20-we will continue to monitor closely again no active bleeding he is on iron supplements he has had 2 tarry stools-this may be related to iron supplements are we will recheck stools for occult blood (4) Abnormal CT of spine Current Visit: Yes Status: Acute Assessment and Plan: Suggestion of posteriorly positioned tip of clivus in relation to the odontoid process MRI C-spine for further evaluation-did reveal moderate to severe central spinal canal narrowing at C5-C6 mild central spinal canal narrowing at C4-C5 and C6-7 I did consult orthospine (5) Elevated serum creatinine Current Visit: Yes Status: Acute Assessment and Plan: Unclear whether this represents acute kidney injury versus chronic kidney disease. Continue IVF, renal function improving, monitor S cr daily Avoid nephrotoxins. 08/20 Creatinine has improved 1.14 today with GFR greater than 60 IV fluids are currently off we will continue to monitor serum creatinine daily encourage oral intake Avoid nephrotoxins (6) DVT prophylaxis Current Visit: Yes Status: Acute Assessment and Plan: Continue SCD's, out of bed 3 times a day to chair, PT OT as tolerated (7) Positive blood culture Current Visit: Yes Status: Acute Assessment and Plan: 12 blood cultures positive for gram-negative rods. Patient has been afebrile with no leukocytosis urinalysis is negative respiratory pain O's negative chest x-ray with no acute process CT of abdomen obtained 08/17/18 Motion artifact limits detailed evaluation of the abdominal contents. Normal liver size and contour. No bile duct dilatation. Nonobstructive bilateral nephrolithiasis. Colonic diverticulosis without evidence of diverticulitis. Advanced thoracolumbar spondylosis with L5 spondylolysis and grade 1 spondylolisthesis. Low-attenuation cardiac blood pool may be seen with underlying anemia. -Empirically initiated on Rocephin. -I did redraw blood cultures-patient does have stage II ulcer on buttocks that is scabbed and does not appear to be infected as well as what appears to be a scratch on his left foot -I did curbside infectious disease who recommends continuation of antibiotic- awaiting results of second blood cultures suspect possible contamination- - Time Spent with Patient Total time spent is greater than 50% in coordination of care (as documented) at patient's floor/unit and/or counseling patient: Internal Medicine: Result - Labs CBC & Chem 7: 08/20/18 05:26 08/20/18 05:26 Labs: Short CBC 08/19/18 08/19/18 08/20/18 Range/Units 13:04 18:46 05:26 WBC 6.3 (4.3-11.1) K/mcL Hgb 8.6 L 8.3 L 7.9 L (12.9-16.9) g/dL Hct 27.4 L 26.4 L 24.3 L (37.5-50.1) % Plt Count 138 L (140-400) K/mcL Neutrophils # 5.1 (1.6-8.9) K/mcL BMP 08/20/18 05:26 Sodium 142 Potassium 3.8 Chloride 111 H Carbon Dioxide 27 BUN 13 Creatinine 1.14 Glucose 97 Calcium 8.1 L Urine 08/20/18 Range/Units 09:10 Urine Color Dark Yellow (Yellow) Urine Clarity Clear (Clear) Urine pH 6.0 (5.0-8.0) pH Units Ur Specific [place] 1.029 H (1.010-1.025) Urine Protein Negative (Neg-Trace) mg/dL Urine Glucose (UA) Normal (Normal) mg/dL - ABG Interpretation ABG results: PT/INR, D-dimer PT 13.5 Seconds (9.4-12.1) H 08/17/18 00:06 Consult Discharge Plan - Plan Referrals: NONE,PCP [Primary Care Provider] - (1) Fall Qualifiers: Encounter type: subsequent encounter Qualified Code(s): W19.XXXD - Unspecified fall, subsequent encounter (2) Failure to thrive Qualifiers: Failure to thrive age range: in adult Qualified Code(s): R62.7 - Adult failure to thrive (3) Anemia Qualifiers: Anemia type: unspecified type Qualified Code(s): D64.9 - Anemia, unspecified
[2018-08-20] MEDS: cefTRIAXone 1,000 MG in Water for inj. (sterile) 20 ML 10 ML IVP SCH (19:21)
[2018-08-21 05:32] LABS: Basophils % 0.2 %; Eosinophils # 0.2 K/mcL (0.0-0.6); Eosinophils % 3.7 %; Hematocrit 23.9 % (37.5-50.1); Hemoglobin 7.8 g/dL (12.9-16.9); Immature Granulocytes % 0.5 % (0-4); Lymphocytes % 21.9 %; Mean Corpuscular HGB Conc 32.6 g/dL (31.6-35.5); Mean Corpuscular Hemoglobin 30.1 pg (28.0-33.3); Mean Corpuscular Volume 92.3 fL (83.0-100.0); Mean Platelet Volume 9.9 fL (9.4-12.4); Monocytes # 0.2 K/mcL (0.0-1.3); Monocytes % 4.6 %; Platelet Count 137 K/mcL (140-400); Red Blood Count 2.59 M/mcL (4.19-5.50); Segmented Neutrophils % 69.1 %
[2018-08-21 05:56] LABS: BUN/Creatinine Ratio 12 (6-26); Blood Urea Nitrogen 12 mg/dL (8-23); Calcium 7.8 mg/dL (8.6-10.3); Carbon Dioxide 26 mEq/L (23-29); Chloride 108 mEq/L (98-107); Glucose 95 mg/dL (70-105); Osmolality,Calculated 290 (280-300); Potassium 3.6 mEq/L (3.5-5.1); Sodium 140 mEq/L (136-145); eGFR For Non-African Americans > 60 (> 60)
--- NOTE | 2018-08-21 08:31 | Internal Med Progress Note ---
Hospitalist Progress Note - Encounter Date of Encounter: 08/21/18 Time of Encounter: 08:31 - Subjective Interval History: Patient was seen and examined at bedside. Currently presently confused oriented to name only following simple commands. Has been participating in physical therapy evaluated by speech therapy currently on honey thickened liquids - No s/sx of active bleeding - Exam Vitals: Temp Pulse Resp BP Pulse Ox 98.0 F 71 17 143/82 93 08/21/18 08:16 08/21/18 08:16 08/21/18 08:16 08/21/18 08:16 08/21/18 08:16 Exam: General: Alert and oriented to self and place, disoriented to date, situation. Pleasant cooperative HEENT:EOM, pupils equal, round and reactive. Cardiovascular:Normal S1 & S2, No JVD. Pulse regular. Lungs: clear to auscultation, no wheezes/rales Abdomen:Soft, non-tender, no rigidity. Extremities:No deformity or swelling Neurological:CN II-XII intact, Skin:Normal color, no rash, no lesions. Pulses:Carotid and radial pulses normal +2. Rest of the physical exam is non contributory - Assessment and Plan (1) Fall Current Visit: Yes Status: Acute Assessment and Plan: Patient has had multiple falls over the past 3 weeks. This could be multifactorial He has not been to a physician for several years unclear patient 's neurological baseline status, he may have undiagnosed dementia. CT of has negative for any acute intracranial abnormalities we will consult neurology to rule out any neurological processes It does appear that he has spinal stenosis which may be contributing to his falls-orthospine has been consulted Patient has been experiencing symptomatic anemia-with shortness of breath he did require blood transfusion does not appear to be actively bleeding we will continue to monitor closely continue with iron supplements consider Hem/onc consult Infectious process may be contributing to falls Patient did have a positive blood culture for gram-negative rods as a present there is no infectious source- he is afebrile with no leukocytosis urinalysis is normal chest x-ray with no acute process respiratory panel negative. CT of Abdomen within normal limits we will monitor closely 08/21 Has been seen by neurology and appreciate recommendations -awaiting MRI results awaiting recommendations from ortho spine Cont to have drop in Hgb- appears iron deficient - he is on iron - occult stool neg x2 VS stable - will consult GI for possible scope (2) Failure to thrive Current Visit: Yes Status: Acute Assessment and Plan: Unclear if patient's baseline status, appears to have undiagnosed dementia -Imaging reveals cerebral volume loss and chronic microvascular ischemic white matter Presents following a fall at home, his brother reports that he has had multiple falls at home in the last couple of months; weakness, fatigue and failure to thrive chronic Does not appear to have any obvious source of infection TSH, B12/folate all within normal limits, TSH 1.581, folate 5.3, vitamin B12 1058 PT/Ot evaluation SW for placement 08/19 PTOT evaluation recommending ECF placement awaiting brothers choice of facility account services associate consulted for discharge planning Speech therapy recommending honey thickened liquids-patient did consume 50% of meal today we will stop IV fluids for now 08/20 Patient has been consuming part of his meals I am concerned about his dental hygiene which may be interfering with his capability to eat-will need follow-up with dentist as outpatient account services associate consult for discharge planning-will be discharged to ECF Speech therapy recommending honey thickened liquids patient did consume 80% of dinner tonight 08/21 Cont with speech therapy recommendations dietary consult for supplement (3) Anemia Current Visit: Yes Status: Acute Assessment and Plan: Normochromic and normocytic Unclear whether acute or chronic FOBT negative, hemodynamically stable no evidence of cirrhosis on imaging Iron saturation 15, serum iron 36, transferrin 169 We will start oral iron supplementation now H&H worsening overnight--6.9/21.5, no obvious episodes of bleeding Likely dilutional with IVF volume replacement Type and screen He get blood cultures sent Discussed with patient need for transfusion given the fact that he is symptomatic Transfuse PRBC 1 Recheck H&H this afternoon then every 6 after transfusion 08/19 no active bleeding noted hemoglobin stable at this time we will continue to monitor continue with iron supplements 08/20-we will continue to monitor closely again no active bleeding he is on iron supplements he has had 2 tarry stools-this may be related to iron supplements are we will recheck stools for occult blood 08/21 appears to be iron deficient cont iron supplements- Hgb down 7.8- occult stool neg x2 will consult GI for possible scope (4) Abnormal CT of spine Current Visit: Yes Status: Acute Assessment and Plan: Suggestion of posteriorly positioned tip of clivus in relation to the odontoid process MRI C-spine for further evaluation-did reveal moderate to severe central spinal canal narrowing at C5-C6 mild central spinal canal narrowing at C4-C5 and C6-7 I did consult orthospine 08/21 awaiting orthospine recommendations (5) Elevated serum creatinine Current Visit: Yes Status: Acute Assessment and Plan: Unclear whether this represents acute kidney injury versus chronic kidney disease. Continue IVF, renal function improving, monitor S cr daily Avoid nephrotoxins. 08/20 Creatinine has improved 1.14 today with GFR greater than 60 IV fluids are currently off we will continue to monitor serum creatinine daily encourage oral intake Avoid nephrotoxins 08/21 resolved cont to monitor (6) DVT prophylaxis Current Visit: Yes Status: Acute Assessment and Plan: Continue SCD's, out of bed 3 times a day to chair, PT OT as tolerated (7) Positive blood culture Current Visit: Yes Status: Acute Assessment and Plan: 12 blood cultures positive for gram-negative rods. Patient has been afebrile with no leukocytosis urinalysis is negative respiratory pain O's negative chest x-ray with no acute process CT of abdomen obtained 08/17/18 Motion artifact limits detailed evaluation of the abdominal contents. Normal liver size and contour. No bile duct dilatation. Nonobstructive bilateral nephrolithiasis. Colonic diverticulosis without evidence of diverticulitis. Advanced thoracolumbar spondylosis with L5 spondylolysis and grade 1 spondylolisthesis. Low-attenuation cardiac blood pool may be seen with underlying anemia. -Empirically initiated on Rocephin. -I did redraw blood cultures-patient does have stage II ulcer on buttocks that is scabbed and does not appear to be infected as well as what appears to be a scratch on his left foot -I did curbside infectious disease who recommends continuation of antibiotic- awaiting results of second blood cultures suspect possible contamination- - Time Spent with Patient Total time spent is greater than 50% in coordination of care (as documented) at patient's floor/unit and/or counseling patient: Internal Medicine: Result - Labs CBC & Chem 7: 08/21/18 05:21 08/21/18 05:21 Labs: Short CBC 08/21/18 Range/Units 05:21 WBC 4.4 (4.3-11.1) K/mcL Hgb 7.8 L (12.9-16.9) g/dL Hct 23.9 L (37.5-50.1) % Plt Count 137 L (140-400) K/mcL Neutrophils # 3.0 (1.6-8.9) K/mcL BMP 08/21/18 05:21 Sodium 140 Potassium 3.6 Chloride 108 H Carbon Dioxide 26 BUN 12 Creatinine 1.01 Glucose 95 Calcium 7.8 L Urine 08/20/18 Range/Units 09:10 Urine Color Dark Yellow (Yellow) Urine Clarity Clear (Clear) Urine pH 6.0 (5.0-8.0) pH Units Ur Specific [place] 1.029 H (1.010-1.025) Urine Protein Negative (Neg-Trace) mg/dL Urine Glucose (UA) Normal (Normal) mg/dL - ABG Interpretation ABG results: PT/INR, D-dimer PT 13.5 Seconds (9.4-12.1) H 08/17/18 00:06 - Impressions Impressions Chest X-Ray 08/20/18 19:48 IMPRESSION: No acute cardiopulmonary disease. D/ / Nikita Sutton MD / Nikita Sutton MD Interpreting Provider: Nikita Sutton MD - VTE Documentation of Mechanical Device: Intermittent pneumatic compression device Consult Discharge Plan - Plan Referrals: NONE,PCP [Primary Care Provider] - (1) Fall Qualifiers: Encounter type: subsequent encounter Qualified Code(s): W19.XXXD - Unspecified fall, subsequent encounter (2) Failure to thrive Qualifiers: Failure to thrive age range: in adult Qualified Code(s): R62.7 - Adult failure to thrive (3) Anemia Qualifiers: Anemia type: unspecified type Qualified Code(s): D64.9 - Anemia, unspecified
--- NOTE | 2018-08-21 10:04 | Neurology - Consult Note ---
<Onur Riggs N - Last Filed: 08/21/18 14:24> Date of Encounter: 08/21/18 Time of Encounter: 10:04 Assessment and Plan (1) Fall Current Visit: Yes Status: Acute This is a 67 year old male with poor medical follow up who has experienced multiple falls at home. He has many risk factors that may contribute to his increase in falls, including failure to thrive and deconditioning, possible underlying undiagnosed dementia, anemia, possible infection, spinal stenosis with likely myelomalacia, or an underlying neurological process. He does not exhibit any focal neurological deficits on examination, but complete examination is limited due to mental status. overall strength is 4/5 in all four extremities, but suspect this is secondary to deconditioning rather than neurological causes; however, he does have evidence of spinal stenosis and likely myelomalacia which may be contributing factors. -We will obtain MRI of the head to rule out any infarcts -f/u orthopedic spine surgery consultation -TSH, folate, and B12 levels are within normal range Qualifiers: Encounter type: subsequent encounter Qualified Code(s): W19.XXXD - Unspecified fall, subsequent encounter History of Present Illness Chief complaint: falls HPI: Mr. Medina is a 67 year old male with unknown past medical history as he has reportedly not been evaluated by a physician on a routine basis. Patient was admitted to the hospital for multiple falls and failure to thrive. On admission a head CT showed moderate generalized atrophy and severe small vessel ischemic disease, which along with his mental status raised suspicion for possible underlying dementia. He also had a CT neck which showed a slight posterior position of clivus in relation to odontoid. Follow up MRI was obtained of the C- spine which showed moderate to severe central spinal canal narrowing at C5-C6 with likely underlying myelomalacia. Orhopedic spine surgery has been consulted. During his hospital stay the patient has also been treated for symptomatic anemia with hgb below 7 which required transfusion. He has also had positive blood cultures for gram negative rods for which he is currently on antibiotic therapy. Today the patient is alert and oriented to self and location, but not year. He answers few question and has to be redirected often. He can not recall why he is in the hospital and appears confused. Unknown if this is patient's baseline mental status. Past Med Surg Social Fam HX - Past Medical History Medical history: other - Past Surgical History Additional surgical history: PT unable to state - Social History Smoking Status: Current every day smoker Smokeless Tobacco Status: No Alcohol use: none Drug use: none Medications and Allergies Unable To Obtain [Unable to Obtain] 08/18/18 [History] 3 Allergy/AdvReac Type Severity Reaction Status Date / Time No Known Allergies Allergy Verified 08/17/18 17:14 ROS unobtainable: due to mental status All Systems: The remainder of the systems were reviewed and are negative Physical Examination - Vital Signs Vital Signs: Initial Vital Signs Temp Pulse Resp BP Pulse Ox 98.0 F 96 18 154/90 98 08/16/18 23:57 08/16/18 23:57 08/16/18 23:57 08/16/18 23:57 08/16/18 23:57 - Exam Exam: constitutional: awake, oriented to self and place only, not to year. No acute distress. Neurological: Limited exam due to mental status Cranial nerves: pupils are equal round and reactive, EOM are intact, facial sensory and motor function are intact. Tongue protrudes midline, uvula midline. Hearing grossly intact. No SCM or trapezius weakness noted. Upper extremities: moves all extremities to command. Upper extremity strength is 4/5 bilaterally, but symmetric. sensation intact. biceps reflexes are present and 1+ bilateral. unable to assess finger to nose, pronator drift, or rapid alternating hand movements due to mental status. Lower extremities: moves extremities to command. SCDs in place. strength is symmetric bilaterally and 4/5. sensation intact. unable to appreciate patellar reflexes bilaterally. Does not follow command to perform heel to shafer movements. Results - Laboratory Findings CBC and BMP: 08/21/18 05:21 08/21/18 05:21 Abnormal lab findings: Abnormal lab results RBC 2.59 M/mcL (4.19-5.50) L 08/21/18 05:21 Hgb 7.8 g/dL (12.9-16.9) L 08/21/18 05:21 Hct 23.9 % (37.5-50.1) L 08/21/18 05:21 RDW 16.0 % (11.5-14.5) H 08/21/18 05:21 Plt Count 137 K/mcL (140-400) L 08/21/18 05:21 PT 13.5 Seconds (9.4-12.1) H 08/17/18 00:06 Chloride 108 mEq/L (98-107) H 08/21/18 05:21 POC Glucose 133 mg/dL (70-99) H 08/20/18 16:02 Calcium 7.8 mg/dL (8.6-10.3) L 08/21/18 05:21 Iron 36 mcg/dL (65-175) L 08/17/18 08:32 % Saturation 15 % (20-55) L 08/17/18 08:32 Transferrin 169 mg/dL (203-362) L 08/17/18 08:32 Total Bilirubin 1.9 mg/dL (0.3-1.0) H 08/17/18 00:06 Direct Bilirubin 0.6 mg/dL (0.0-0.2) H 08/17/18 00:06 Indirect Bilirubin 1.3 mg/dL (0.0-1.2) H 08/17/18 00:06 Serum Total Protein 6.2 g/dL (6.4-8.9) L 08/17/18 00:06 Albumin 3.3 g/dL (3.5-5.7) L 08/17/18 00:06 Ur Specific [place] 1.029 (1.010-1.025) H 08/20/18 09:10 Urine Bilirubin Small (Negative) H 08/20/18 09:10 Urine Urobilinogen 2.0 mg/dL (Normal) H 08/20/18 09:10 Ur Squamous Epith Cells Moderate per lpf (None-Few) H 08/17/18 02:19 Consult Discharge Plan - Plan Referrals: NONE,PCP [Primary Care Provider] - <Molina Ovalles - Last Filed: 08/21/18 17:28> Date of Encounter: 08/21/18 Assessment and Plan (1) Fall Current Visit: Yes Status: Acute As above. The most important factors here her that this patient likely has an undiagnosed dementia. His falls are likely due to the underlying dementia, hemoglobin have normal pressure hydrocephalus. One may be due to the cervical myelopathy causing generalized weakness. He also has failed to thrive deconditioning poorly nourished. I would like to obtain an MRI scan of the brain just to be certain he has not experienced an acute cerebral infarct. Although otherwise I do not feel that this patient is going to be a good candidate for any aggressive surgical management. Because of the underlying dementia, and lack of good support system, and rehabilitation will be difficult nearly impossible. I would recommend extended care facility for this patient particularly since its his family seems to be having difficulty supplying his needs at home. I will reevaluate him at your request. Qualifiers: Encounter type: subsequent encounter Qualified Code(s): W19.XXXD - Unspecified fall, subsequent encounter History of Present Illness HPI: The chart was reviewed, the patient was seen and examined independently early this morning. Case was discussed with the resident on service it seems that the patient lives with his brother has been having more frequent falls and confusion. He more than likely has a baseline dementia which was undiagnosed previously. Unfortunately no family members are present to help with the history. CT scan of the head was completed in the ED which does reveal significant atrophy along with chronic white matter changes. I cannot absolutely rule out an acute infarct or even normal pressure hydrocephalus. I did also review the MRI scan of his cervical spine. It does show severe spinal stenosis with myelomalacia at the C5-C6 region. All Systems: The remainder of the systems were reviewed and are negative Physical Examination - Vital Signs Vital Signs: Initial Vital Signs Temp Pulse Resp BP Pulse Ox 98.0 F 96 18 154/90 98 08/16/18 23:57 08/16/18 23:57 08/16/18 23:57 08/16/18 23:57 08/16/18 23:57 - Exam Exam: I agree with the neurologic examination as stated above. I find no focal or lateralized deficits. However his mental status is compromised significantly. He is not able to give a history, he is really not attentative at all. Highly suspicious of undiagnosed dementia. - Neurologic Detailed motor examination: grossly full strength in all extremities Detailed sensory examination: other (Patient does respond to noxious stim however cannot do a traditional sensory assessment.) Reflex and gait examination: other (Deep tendon reflexes are diminished throughout.) Mental Status Examination: awake, does not follow commands, drowsy, opens eyes to voice, opens eyes to noxious stimulation, makes eye contact, inattentive, demented, hook and gasp reflex Cranial nerve examination: PERRL, EOMI, corneal reflexes brisk symmetrically, no facial asymmetry is present Results - Laboratory Findings CBC and BMP: 08/21/18 05:21 08/21/18 05:21 Abnormal lab findings: Abnormal lab results RBC 2.59 M/mcL (4.19-5.50) L 08/21/18 05:21 Hgb 7.8 g/dL (12.9-16.9) L 08/21/18 05:21 Hct 23.9 % (37.5-50.1) L 08/21/18 05:21 RDW 16.0 % (11.5-14.5) H 08/21/18 05:21 Plt Count 137 K/mcL (140-400) L 08/21/18 05:21 PT 13.5 Seconds (9.4-12.1) H 08/17/18 00:06 Chloride 108 mEq/L (98-107) H 08/21/18 05:21 POC Glucose 133 mg/dL (70-99) H 08/20/18 16:02 Calcium 7.8 mg/dL (8.6-10.3) L 08/21/18 05:21 Iron 36 mcg/dL (65-175) L 08/17/18 08:32 % Saturation 15 % (20-55) L 08/17/18 08:32 Transferrin 169 mg/dL (203-362) L 08/17/18 08:32 Ferritin 298 ng/mL (20-250) H 08/21/18 12:21 AST 11 Units/L (13-39) L 08/21/18 12:21 Lactate Dehydrogenase 122 Units/L (140-271) L 08/21/18 12:21 Serum Total Protein 5.2 g/dL (6.4-8.9) L 08/21/18 12:21 Albumin 2.5 g/dL (3.5-5.7) L 08/21/18 12:21 Albumin/Globulin Ratio 0.9 (1.1-2.2) L 08/21/18 12:21 Ur Specific [place] 1.029 (1.010-1.025) H 08/20/18 09:10 Urine Bilirubin Small (Negative) H 08/20/18 09:10 Urine Urobilinogen 2.0 mg/dL (Normal) H 08/20/18 09:10 Ur Squamous Epith Cells Moderate per lpf (None-Few) H 08/17/18 02:19
[2018-08-21 13:27] LABS: Ferritin 298 ng/mL (20-250)
[2018-08-21 13:34] LABS: Albumin 2.5 g/dL (3.5-5.7); Albumin/Globulin Ratio 0.9 (1.1-2.2); Bilirubin,Direct 0.2 mg/dL (0.0-0.2); Bilirubin,Indirect 0.6 mg/dL (0.0-1.2); Bilirubin,Total 0.8 mg/dL (0.3-1.0); Globulin 2.7 g/dL (2.4-3.5); Lactate Dehydrogenase 122 Units/L (140-271); Total Protein 5.2 g/dL (6.4-8.9)
[2018-08-21] MEDS: cefTRIAXone 1,000 MG in Water for inj. (sterile) 20 ML 10 ML IVP SCH (18:18)
[2018-08-22 05:16] LABS: Basophils % 0.5 %; Eosinophils # 0.1 K/mcL (0.0-0.6); Eosinophils % 3.2 %; Hematocrit 25.8 % (37.5-50.1); Hemoglobin 8.1 g/dL (12.9-16.9); Immature Granulocytes % 0.5 % (0-4); Lymphocytes % 23.1 %; Mean Corpuscular HGB Conc 31.4 g/dL (31.6-35.5); Mean Corpuscular Hemoglobin 29.2 pg (28.0-33.3); Mean Corpuscular Volume 93.1 fL (83.0-100.0); Mean Platelet Volume 9.8 fL (9.4-12.4); Monocytes # 0.3 K/mcL (0.0-1.3); Monocytes % 6.4 %; Neutrophils # 2.9 K/mcL (1.6-8.9); Platelet Count 144 K/mcL (140-400); Red Blood Count 2.77 M/mcL (4.19-5.50); Red Cell Distribution Width 15.8 % (11.5-14.5); Segmented Neutrophils % 66.3 %
[2018-08-22 05:31] LABS: BUN/Creatinine Ratio 13 (6-26); Blood Urea Nitrogen 11 mg/dL (8-23); Calcium 7.8 mg/dL (8.6-10.3); Carbon Dioxide 27 mEq/L (23-29); Chloride 108 mEq/L (98-107); Glucose 88 mg/dL (70-105); Osmolality,Calculated 285 (280-300); Potassium 3.9 mEq/L (3.5-5.1); Sodium 138 mEq/L (136-145); eGFR For Non-African Americans > 60 (> 60)
--- NOTE | 2018-08-22 08:06 | Neurology Progress Note ---
Date of Encounter: 08/22/18 Time of Encounter: 08:06 Assessment and Plan (1) Fall Current Visit: Yes Status: Acute Qualifiers: Encounter type: subsequent encounter Qualified Code(s): W19.XXXD - Unspecified fall, subsequent encounter (2) Mixed Alzheimer's and vascular dementia Current Visit: Yes Status: Acute Based on his clinical presentation as well as the neurologic workup including the MRI, it seems likely that this patient has had dementia which is undiagnosed. The MRI does show significant periventricular matter change consistent with a Binswanger's type pattern. There is also a significant element of cortical atrophy with compensatory ventricular dilatation. He does have severe cervical myelopathy with myelomalacia present at the C5-C6 level. However given his current status not convinced that surgical intervention is going to be hugely beneficial. Particularly because his dementia is advanced enough to compromise his ability to function independently. The acute right parietal infarct in my opinion is likely too small to be clinically significant. I simply recommend conservative management here. Which would include management of his hypertension, would recommend aspirin daily I am not convinced that Aricept, or memantine going to be beneficial. I recommend supportive care through a nursing care facility. We will reevaluate at your request. Subjective Interval history: Chart was reviewed, patient was seen and examined. No clinical change from a neurologic perspective. MRI scan of the brain does reveal an area of new infarction in the right parietal lobe region. My opinion however this infarct is very small and not likely to be clinically significant. My overall impression with this patient is that he has dementia which is likely mixed, containing a vascular component and a neurodegenerative component. Objective - Constitutional Vitals: Temp Pulse Resp BP Pulse Ox 98.9 F 70 20 156/95 96 08/22/18 06:50 08/22/18 06:50 08/22/18 06:50 08/22/18 06:50 08/22/18 06:50 - Neurological Exam Motor Examination: Present: grossly full strength in all extremities Sensation intact: Present: other (Patient does respond to noxious stim however cannot do a traditional sensory assessment.) Reflex and gait examination: other (Deep tendon reflexes are diminished throughout.) Mental Status Examination: Present: awake, does not follow commands, drowsy, opens eyes to voice, opens eyes to noxious stimulation, makes eye contact, inattentive, demented, hook and gasp reflex Cranial nerve examination: Present: PERRL, EOMI, corneal reflexes brisk symmetrically, no facial asymmetry is present - VTE Documentation of Mechanical Device: Intermittent pneumatic compression device Results - Laboratory Findings CBC and BMP: 08/22/18 04:55 08/22/18 04:55 Abnormal lab findings: Abnormal lab results RBC 2.77 M/mcL (4.19-5.50) L 08/22/18 04:55 Hgb 8.1 g/dL (12.9-16.9) L 08/22/18 04:55 Hct 25.8 % (37.5-50.1) L 08/22/18 04:55 MCHC 31.4 g/dL (31.6-35.5) L 08/22/18 04:55 RDW 15.8 % (11.5-14.5) H 08/22/18 04:55 PT 13.5 Seconds (9.4-12.1) H 08/17/18 00:06 Chloride 108 mEq/L (98-107) H 08/22/18 04:55 POC Glucose 120 mg/dL (70-99) H 08/21/18 21:02 Calcium 7.8 mg/dL (8.6-10.3) L 08/22/18 04:55 Iron 36 mcg/dL (65-175) L 08/17/18 08:32 % Saturation 15 % (20-55) L 08/17/18 08:32 Transferrin 169 mg/dL (203-362) L 08/17/18 08:32 Ferritin 298 ng/mL (20-250) H 08/21/18 12:21 AST 11 Units/L (13-39) L 08/21/18 12:21 Lactate Dehydrogenase 122 Units/L (140-271) L 08/21/18 12:21 Serum Total Protein 5.2 g/dL (6.4-8.9) L 08/21/18 12:21 Albumin 2.5 g/dL (3.5-5.7) L 08/21/18 12:21 Albumin/Globulin Ratio 0.9 (1.1-2.2) L 08/21/18 12:21 Ur Specific [place] 1.029 (1.010-1.025) H 08/20/18 09:10 Urine Bilirubin Small (Negative) H 08/20/18 09:10 Urine Urobilinogen 2.0 mg/dL (Normal) H 08/20/18 09:10 Ur Squamous Epith Cells Moderate per lpf (None-Few) H 08/17/18 02:19 Consult Discharge Plan - Plan Referrals: NONE,PCP [Primary Care Provider] -
--- NOTE | 2018-08-22 09:46 | Internal Med Progress Note ---
Hospitalist Progress Note - Encounter Date of Encounter: 08/22/18 Time of Encounter: 09:24 - Subjective Interval History: Patient was seen and examined at bedside. Currently presently confused oriented to name only following simple commands. Has been participating in physical therapy evaluated by speech therapy currently on honey thickened liquids - No s/sx of active bleeding. He did have a conversation with the patient's next of kin brother Kishor Medina and updated him patient's condition. We did discuss neurology's findings of a acute right parietal infarct which is very small, to small to be clinically significant as well as patient's undiagnosed dementia, and cervical stenosis , myelomalacia. Due to patient's comorbidities neurology is not convinced that surgical intervention would be hugely beneficial for the patient particularly because of his dementia is so advanced that it compromises his ability to function independently. Patient's brother Kishor Medina also agreed that conservative managements would be best, however he would like to hear ortho surgery recommendations We also discussed his anemia and possible EGD which again he would like to pursue conservative measures and to monitor possible EGD as outpatient as needed. We will continue with physical therapy will be placed to rehabilitation - Exam Vitals: Temp Pulse Resp BP Pulse Ox 98.9 F 70 20 156/95 96 08/22/18 06:50 08/22/18 06:50 08/22/18 06:50 08/22/18 06:50 08/22/18 06:50 Exam: General: Alert and oriented to self and place, disoriented to date, situation. Pleasant cooperative HEENT:EOM, pupils equal, round and reactive. Cardiovascular:Normal S1 & S2, No JVD. Pulse regular. Lungs: clear to auscultation, no wheezes/rales Abdomen:Soft, non-tender, no rigidity. Extremities:No deformity or swelling Neurological:CN II-XII intact, Skin:Normal color, no rash, no lesions. Pulses:Carotid and radial pulses normal +2. Rest of the physical exam is non contributory - Assessment and Plan (1) Fall Current Visit: Yes Status: Acute Assessment and Plan: Patient has had multiple falls over the past 3 weeks. This could be multifactorial He has not been to a physician for several years unclear patient 's neurological baseline status, he may have undiagnosed dementia. CT of has negative for any acute intracranial abnormalities we will consult neurology to rule out any neurological processes It does appear that he has spinal stenosis which may be contributing to his falls-orthospine has been consulted Patient has been experiencing symptomatic anemia-with shortness of breath he did require blood transfusion does not appear to be actively bleeding we will continue to monitor closely continue with iron supplements consider Hem/onc consult Infectious process may be contributing to falls Patient did have a positive blood culture for gram-negative rods as a present there is no infectious source- he is afebrile with no leukocytosis urinalysis is normal chest x-ray with no acute process respiratory panel negative. 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 -according to neurology too small to be clinically significant - neurology recommending conservative measurements at this time Awaiting ortho spine recommendations cont fall precautions PT/OT ECF placement (2) Failure to thrive Current Visit: Yes Status: Acute Assessment and Plan: Unclear if patient's baseline status, appears to have undiagnosed dementia -Imaging reveals cerebral volume loss and chronic microvascular ischemic white matter Presents following a fall at home, his brother reports that he has had multiple falls at home in the last couple of months; weakness, fatigue and failure to thrive chronic Does not appear to have any obvious source of infection TSH, B12/folate all within normal limits, TSH 1.581, folate 5.3, vitamin B12 1058 PT/Ot evaluation SW for placement 08/19 PTOT evaluation recommending ECF placement awaiting brothers choice of facility office services associate consulted for discharge planning Speech therapy recommending honey thickened liquids-patient did consume 50% of meal today we will stop IV fluids for now 08/20 Patient has been consuming part of his meals I am concerned about his dental hygiene which may be interfering with his capability to eat-will need follow-up with dentist as outpatient office services associate consult for discharge planning-will be discharged to ECF Speech therapy recommending honey thickened liquids patient did consume 80% of dinner tonight 08/21 Cont with speech therapy recommendations dietary consult for supplement 08/22 Speech therapy PT/OT ECF placement (3) Anemia Current Visit: Yes Status: Acute Assessment and Plan: Normochromic and normocytic Unclear whether acute or chronic FOBT negative, hemodynamically stable no evidence of cirrhosis on imaging Iron saturation 15, serum iron 36, transferrin 169 We will start oral iron supplementation now H&H worsening overnight--6.9/21.5, no obvious episodes of bleeding Likely dilutional with IVF volume replacement Type and screen He get blood cultures sent Discussed with patient need for transfusion given the fact that he is symptomatic Transfuse PRBC 1 Recheck H&H this afternoon then every 6 after transfusion 08/19 no active bleeding noted hemoglobin stable at this time we will continue to monitor continue with iron supplements 08/20-we will continue to monitor closely again no active bleeding he is on iron supplements he has had 2 tarry stools-this may be related to iron supplements are we will recheck stools for occult blood 08/21 appears to be iron deficient cont iron supplements- Hgb down 7.8- occult stool neg x2 will consult GI for possible scope 08/22 Appears to be iron deficient Hgb stable at this time occult stool neg x2 - I did speak with Ghada Mcnair [employer] with GI about possible scope- we will defer at this time since he is stable and no active bleed EGD can be completed as an outpatient- immediately following my conversation with Lola Sandoval received a call from the patient's brother and next of kin Kishor Medina who would like to continue to monitor and treat conservatively and agrees with outpatient EGD as needed (4) Abnormal CT of spine Current Visit: Yes Status: Acute Assessment and Plan: Suggestion of posteriorly positioned tip of clivus in relation to the odontoid process MRI C-spine for further evaluation-did reveal moderate to severe central spinal canal narrowing at C5-C6 mild central spinal canal narrowing at C4-C5 and C6-7 I did consult orthospine 08/21 awaiting orthospine recommendations 08/22 (5) Elevated serum creatinine Current Visit: Yes Status: Resolved Assessment and Plan: Unclear whether this represents acute kidney injury versus chronic kidney disease. Continue IVF, renal function improving, monitor S cr daily Avoid nephrotoxins. 08/20 Creatinine has improved 1.14 today with GFR greater than 60 IV fluids are currently off we will continue to monitor serum creatinine daily encourage oral intake Avoid nephrotoxins 08/21 resolved cont to monitor (6) DVT prophylaxis Current Visit: Yes Status: Acute Assessment and Plan: Continue SCD's, out of bed 3 times a day to chair, PT OT as tolerated (7) Positive blood culture Current Visit: Yes Status: Acute Assessment and Plan: 12 blood cultures positive for gram-negative rods. Patient has been afebrile with no leukocytosis urinalysis is negative respiratory pain O's negative chest x-ray with no acute process CT of abdomen obtained 08/17/18 Motion artifact limits detailed evaluation of the abdominal contents. Normal liver size and contour. No bile duct dilatation. Nonobstructive bilateral nephrolithiasis. Colonic diverticulosis without evidence of diverticulitis. Advanced thoracolumbar spondylosis with L5 spondylolysis and grade 1 spondylolisthesis. Low-attenuation cardiac blood pool may be seen with underlying anemia. -Empirically initiated on Rocephin. -I did redraw blood cultures-patient does have stage II ulcer on buttocks that is scabbed and does not appear to be infected as well as what appears to be a scratch on his left foot -I did curbside infectious disease who recommends continuation of antibiotic- awaiting results of second blood cultures suspect possible contamination- 08/22 As of today only one positive blood culture with gram-negative rods out of the 2 cultures drawn 08/18/18 Repeat blood cultures drawn 08/19/18 have been negative No signs of infection and leukocytosis and fever continue with Rocephin currently on day 3 - Time Spent with Patient Total time spent is greater than 50% in coordination of care (as documented) at patient's floor/unit and/or counseling patient: Internal Medicine: Result - Labs CBC & Chem 7: 08/22/18 04:55 08/22/18 04:55 Labs: Short CBC 08/22/18 Range/Units 04:55 WBC 4.4 (4.3-11.1) K/mcL Hgb 8.1 L (12.9-16.9) g/dL Hct 25.8 L (37.5-50.1) % Plt Count 144 (140-400) K/mcL Neutrophils # 2.9 (1.6-8.9) K/mcL BMP 08/22/18 04:55 Sodium 138 Potassium 3.9 Chloride 108 H Carbon Dioxide 27 BUN 11 Creatinine 0.83 Glucose 88 Calcium 7.8 L Liver Function 08/21/18 Range/Units 12:21 Total Bilirubin 0.8 (0.3-1.0) mg/dL Direct Bilirubin 0.2 (0.0-0.2) mg/dL AST 11 L (13-39) Units/L ALT 11 (7-52) Units/L Alkaline Phosphatase 52 (34-104) Units/L Albumin 2.5 L (3.5-5.7) g/dL - ABG Interpretation ABG results: PT/INR, D-dimer PT 13.5 Seconds (9.4-12.1) H 08/17/18 00:06 - Impressions Impressions Brain MRI 08/21/18 07:31 IMPRESSION: 1. Acute right temporoparietal cortical ischemic infarct. 2. No acute intracranial hemorrhage or mass effect. 3. Severe chronic white matter microvascular ischemic changes and multifocal remote lacunar infarcts in the bilateral basal ganglia and thalami. 4. Numerous foci of remote microhemorrhage in the basal ganglia, thalami, brainstem, cerebellar hemispheres, and peripheral cerebral hemispheres, which are nonspecific but most commonly seen in the setting of chronic hypertensive microangiopathy. D/ / Benjamin Flores / Benjamin Flores Interpreting Provider: Benjamin Flores Echocardiogram 08/21/18 20:37 Impressions: LVEF 55-60%. Mild left ventricular diastolic dysfunction. Normal right ventricular structure and function. Moderately calcified aortic valve leaflets. No aortic stenosis. Trace tricuspid regurgitation. - VTE Documentation of Mechanical Device: Intermittent pneumatic compression device Consult Discharge Plan - Plan Referrals: NONE,PCP [Primary Care Provider] - (1) Fall Qualifiers: Encounter type: subsequent encounter Qualified Code(s): W19.XXXD - Unspecified fall, subsequent encounter (2) Failure to thrive Qualifiers: Failure to thrive age range: in adult Qualified Code(s): R62.7 - Adult failure to thrive (3) Anemia Qualifiers: Anemia type: unspecified type Qualified Code(s): D64.9 - Anemia, unspecified
[2018-08-22 11:25] LABS: Chol/HDL Ratio 3.6 (0-4.9)
[2018-08-22] MEDS: Aspirin 81 MG TAB.CHEW PO SCH (11:57)
--- NOTE | 2018-08-22 13:03 | Spine Progress Note ---
Date of Encounter: 08/22/18 Time of Encounter: 13:01 Subjective Principal diagnosis: Falls, cervical stenosis, myelomalacia cervical cord. Interval history: Mr. Medina is a 67-year-old with dementia and multiple medical comorbidities who has experienced multiple falls. As part of his workup he had an MRI of the cervical spine which shows stenosis. We are asked to see regarding MRI abnormalities and any possible interventions which could improve his functional status. He is a poor historian and does not follow commands or instructions well. On physical exam he is awake and alert in no acute distress. Afebrile vital signs stable. I am able to get himself fire all upper extremity motor groups. He does not follow commands well. He does not have clonus. His hips move symmetrically. He has a negative Ankit sign. MRI of cervical spine reveals multilevel degenerative changes. There is moderate to severe stenosis at C5-6 and associated myelomalacia at this level. Impression: 1) multiple comorbidities including probable dementia. 2) cervical stenosis 3) myelomalacia of cervical cord Plan: His cervical stenosis and myelomalacia may be contributing factor to his falls. However, I agree with Dr. Molina Ovalles of neurology assessment that his multiple comorbidities are also contributing significantly. He would be a poor surgical candidate from a compliance standpoint. Per nursing staff there was a discussion held with his power of associate attorney (brother) who had no interest in any surgical intervention as well. I would suggest rehabilitation only at this point. Objective Vital signs: Vital Signs Temp Pulse Resp BP Pulse Ox 08/22/18 10:58 98.5 F 75 20 160/81 91 08/22/18 06:50 98.9 F 70 20 156/95 96 08/22/18 03:03 98 F 76 15 157/86 97 08/21/18 23:07 97.9 F 78 15 186/99 92 08/21/18 18:54 97.9 F 88 15 170/91 95 08/21/18 15:51 98.6 F 84 17 158/89 97 Intake and Output 08/21/18 08/22/18 08/22/18 23:59 07:59 15:59 Intake Total 130 / 130 Balance 130 / 130 Intake: IV Fluids Rocephin 1,000 MG In Water for inj. (sterile) 10 ML @ 600 mls/ hr IVP Q24H [facility] Rx#:[id number] Oral 120 / 120 Other: Meal Lunch NPO Percent of Meal Consumed 35% Stool Size Moderate Small Smear Stool Consistency formed soft Stool Color Lai [place]ai [place] # Urine Diapers 1 2 1 # Bowel Movements 1 0 # Bowel Movement Diapers 0 1 Weight 64.3 kg Blood Glucose* 120 79 96 Patient Weight 08/22/18 23:59 Weight 64.3 kg - Labs CBC & BMP: 08/22/18 04:55 08/22/18 04:55 Labs: Abnormal lab results RBC 2.77 M/mcL (4.19-5.50) L 08/22/18 04:55 Hgb 8.1 g/dL (12.9-16.9) L 08/22/18 04:55 Hct 25.8 % (37.5-50.1) L 08/22/18 04:55 MCHC 31.4 g/dL (31.6-35.5) L 08/22/18 04:55 RDW 15.8 % (11.5-14.5) H 08/22/18 04:55 PT 13.5 Seconds (9.4-12.1) H 08/17/18 00:06 Chloride 108 mEq/L (98-107) H 08/22/18 04:55 POC Glucose 120 mg/dL (70-99) H 08/21/18 21:02 Calcium 7.8 mg/dL (8.6-10.3) L 08/22/18 04:55 Iron 36 mcg/dL (65-175) L 08/17/18 08:32 % Saturation 15 % (20-55) L 08/17/18 08:32 Transferrin 169 mg/dL (203-362) L 08/17/18 08:32 Ferritin 298 ng/mL (20-250) H 08/21/18 12:21 AST 11 Units/L (13-39) L 08/21/18 12:21 Lactate Dehydrogenase 122 Units/L (140-271) L 08/21/18 12:21 Serum Total Protein 5.2 g/dL (6.4-8.9) L 08/21/18 12:21 Albumin 2.5 g/dL (3.5-5.7) L 08/21/18 12:21 Albumin/Globulin Ratio 0.9 (1.1-2.2) L 08/21/18 12:21 HDL Cholesterol 24 mg/dL (40-59) L 08/22/18 10:52 Ur Specific [place] 1.029 (1.010-1.025) H 08/20/18 09:10 Urine Bilirubin Small (Negative) H 08/20/18 09:10 Urine Urobilinogen 2.0 mg/dL (Normal) H 08/20/18 09:10 Ur Squamous Epith Cells Moderate per lpf (None-Few) H 08/17/18 02:19 Consult Discharge Plan - Plan Referrals: NONE,PCP [Primary Care Provider] -
[2018-08-22] MEDS: cefTRIAXone 1,000 MG in Water for inj. (sterile) 20 ML 10 ML IVP SCH (17:20)
[2018-08-23 04:00] LABS: Basophils % 0.4 %; Eosinophils # 0.1 K/mcL (0.0-0.6); Eosinophils % 2.9 %; Hematocrit 26.9 % (37.5-50.1); Hemoglobin 8.7 g/dL (12.9-16.9); Immature Granulocytes % 0.7 % (0-4); Lymphocytes # 1.1 K/mcL (0.6-4.6); Lymphocytes % 23.5 %; Mean Corpuscular HGB Conc 32.3 g/dL (31.6-35.5); Mean Corpuscular Hemoglobin 30.3 pg (28.0-33.3); Mean Corpuscular Volume 93.7 fL (83.0-100.0); Mean Platelet Volume 9.6 fL (9.4-12.4); Monocytes # 0.3 K/mcL (0.0-1.3); Monocytes % 6.1 %; Platelet Count 147 K/mcL (140-400); Red Blood Count 2.87 M/mcL (4.19-5.50); Red Cell Distribution Width 15.8 % (11.5-14.5); Segmented Neutrophils % 66.4 %
[2018-08-23 04:18] LABS: BUN/Creatinine Ratio 11 (6-26); Blood Urea Nitrogen 9 mg/dL (8-23); Calcium 8.2 mg/dL (8.6-10.3); Carbon Dioxide 28 mEq/L (23-29); Chloride 106 mEq/L (98-107); Glucose 90 mg/dL (70-105); Osmolality,Calculated 280 (280-300); Potassium 4.1 mEq/L (3.5-5.1); Sodium 136 mEq/L (136-145); eGFR For Non-African Americans > 60 (> 60)
[2018-08-23] MEDS: Aspirin 81 MG TAB.CHEW PO SCH (08:25)
--- NOTE | 2018-08-23 11:10 | Internal Med Progress Note ---
Hospitalist Progress Note - Encounter Date of Encounter: 08/23/18 Time of Encounter: 11:08 - Subjective Interval History: Patient was seen and examined at bedside. Currently presently confused oriented to name only following simple commands. Has been participating in physical therapy evaluated by speech therapy currently on honey thickened liquids - No s/sx of active bleeding. ECF Signature will need to revaluate placement for acceptance on Saturday - Exam Vitals: Temp Pulse Resp BP Pulse Ox 97.7 F 56 18 183/94 98 08/23/18 06:57 08/23/18 06:57 08/23/18 06:57 08/23/18 06:57 08/23/18 06:57 Exam: General: Alert and oriented to self and place, disoriented to date, situation. Pleasant cooperative HEENT:EOM, pupils equal, round and reactive. Cardiovascular:Normal S1 & S2, No JVD. Pulse regular. Lungs: clear to auscultation, no wheezes/rales Abdomen:Soft, non-tender, no rigidity. Extremities:No deformity or swelling Neurological:CN II-XII intact, Skin:Normal color, no rash, no lesions. Pulses:Carotid and radial pulses normal +2. Rest of the physical exam is non contributory - Assessment and Plan (1) Fall Current Visit: Yes Status: Acute Assessment and Plan: Patient has had multiple falls over the past 3 weeks. This could be multifactorial He has not been to a physician for several years unclear patient 's neurological baseline status, he may have undiagnosed dementia. CT of has negative for any acute intracranial abnormalities we will consult neurology to rule out any neurological processes It does appear that he has spinal stenosis which may be contributing to his falls-orthospine has been consulted Patient has been experiencing symptomatic anemia-with shortness of breath he did require blood transfusion does not appear to be actively bleeding we will continue to monitor closely continue with iron supplements consider Hem/onc consult Infectious process may be contributing to falls Patient did have a positive blood culture for gram-negative rods as a present there is no infectious source- he is afebrile with no leukocytosis urinalysis is normal chest x-ray with no acute process respiratory panel negative. 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 -according to neurology too small to be clinically significant - neurology recommending conservative measurements at this time Awaiting ortho spine recommendations cont fall precautions PT/OT ECF placement 08/23 Seen by neurology - per note undiagnosed dementia- advanced enough to compromise ability to function - as well as severe cervical myelopathy with myelomalacia at c5-c6 - which neurology is not convinced that surgical intervention would be beneficial 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 (2) Failure to thrive Current Visit: Yes Status: Acute Assessment and Plan: Unclear if patient's baseline status, appears to have undiagnosed dementia -Imaging reveals cerebral volume loss and chronic microvascular ischemic white matter Presents following a fall at home, his brother reports that he has had multiple falls at home in the last couple of months; weakness, fatigue and failure to thrive chronic Does not appear to have any obvious source of infection TSH, B12/folate all within normal limits, TSH 1.581, folate 5.3, vitamin B12 1058 PT/Ot evaluation SW for placement 08/19 PTOT evaluation recommending ECF placement awaiting brothers choice of facility technical services specialist consulted for discharge planning Speech therapy recommending honey thickened liquids-patient did consume 50% of meal today we will stop IV fluids for now 08/20 Patient has been consuming part of his meals I am concerned about his dental hygiene which may be interfering with his capability to eat-will need follow-up with dentist as outpatient technical services specialist consult for discharge planning-will be discharged to ECF Speech therapy recommending honey thickened liquids patient did consume 80% of dinner tonight 08/21 Cont with speech therapy recommendations dietary consult for supplement 08/22 Speech therapy PT/OT ECF placement 08/23 Speech therapy PT/OT ECF placement -Signature will need to re-evaluate placement acceptance on Saturday. (3) Anemia Current Visit: Yes Status: Acute Assessment and Plan: Normochromic and normocytic Unclear whether acute or chronic FOBT negative, hemodynamically stable no evidence of cirrhosis on imaging Iron saturation 15, serum iron 36, transferrin 169 We will start oral iron supplementation now H&H worsening overnight--6.9/21.5, no obvious episodes of bleeding Likely dilutional with IVF volume replacement Type and screen He get blood cultures sent Discussed with patient need for transfusion given the fact that he is symptomatic Transfuse PRBC 1 Recheck H&H this afternoon then every 6 after transfusion 08/19 no active bleeding noted hemoglobin stable at this time we will continue to monitor continue with iron supplements 08/20-we will continue to monitor closely again no active bleeding he is on iron supplements he has had 2 tarry stools-this may be related to iron supplements are we will recheck stools for occult blood 08/21 appears to be iron deficient cont iron supplements- Hgb down 7.8- occult stool neg x2 will consult GI for possible scope 08/22 Appears to be iron deficient Hgb stable at this time occult stool neg x2 - I did speak with Ghada Mcnair TRIPE FINISHER with GI about possible scope- we will defer at this time since he is stable and no active bleed EGD can be completed as an outpatient- immediately following my conversation with Lola Sandoval received a call from the patient's brother and next of kin Kishor Medina who would like to continue to monitor and treat conservatively and agrees with outpatient EGD as needed 08/23 Stable -Appears to be iron deficient Hgb stable at this time occult stool neg x2 - cont Iron supplements- conservative treatment (4) Abnormal CT of spine Current Visit: Yes Status: Acute Assessment and Plan: Suggestion of posteriorly positioned tip of clivus in relation to the odontoid process MRI C-spine for further evaluation-did reveal moderate to severe central spinal canal narrowing at C5-C6 mild central spinal canal narrowing at C4-C5 and C6-7 I did consult orthospine 08/21 awaiting orthospine recommendations 08/23 Seen by neurology - per note undiagnosed dementia- advanced enough to compromise ability to function - as well as severe cervical myelopathy with myelomalacia at c5-c6 - which neurology is not convinced that surgical intervention would be beneficial 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 (5) Elevated serum creatinine Current Visit: Yes Status: Resolved Assessment and Plan: Unclear whether this represents acute kidney injury versus chronic kidney disease. Continue IVF, renal function improving, monitor S cr daily Avoid nephrotoxins. 08/20 Creatinine has improved 1.14 today with GFR greater than 60 IV fluids are currently off we will continue to monitor serum creatinine daily encourage oral intake Avoid nephrotoxins 08/21 resolved cont to monitor (6) DVT prophylaxis Current Visit: Yes Status: Acute Assessment and Plan: Continue SCD's, out of bed 3 times a day to chair, PT OT as tolerated (7) Positive blood culture Current Visit: Yes Status: Acute Assessment and Plan: 12 blood cultures positive for gram-negative rods. Patient has been afebrile with no leukocytosis urinalysis is negative respiratory pain O's negative chest x-ray with no acute process CT of abdomen obtained 08/17/18 Motion artifact limits detailed evaluation of the abdominal contents. Normal liver size and contour. No bile duct dilatation. Nonobstructive bilateral nephrolithiasis. Colonic diverticulosis without evidence of diverticulitis. Advanced thoracolumbar spondylosis with L5 spondylolysis and grade 1 spondylolisthesis. Low-attenuation cardiac blood pool may be seen with underlying anemia. -Empirically initiated on Rocephin. -I did redraw blood cultures-patient does have stage II ulcer on buttocks that is scabbed and does not appear to be infected as well as what appears to be a scratch on his left foot -I did curbside infectious disease who recommends continuation of antibiotic- awaiting results of second blood cultures suspect possible contamination- 08/22 As of today only one positive blood culture with gram-negative rods out of the 2 cultures drawn 08/18/18 Repeat blood cultures drawn 08/19/18 have been negative No signs of infection and leukocytosis and fever continue with Rocephin currently on day 3 08/23 As of today only one positive blood culture with gram-negative rods out of the 2 cultures drawn 08/18/18 Repeat blood cultures drawn 08/19/18 have been negative- suspect possible containment No signs of infection and leukocytosis and fever continue with Rocephin currently on day 3 DVT Prophylaxis: SCD - Time Spent with Patient Total time spent is greater than 50% in coordination of care (as documented) at patient's floor/unit and/or counseling patient: Internal Medicine: Result - Labs CBC & Chem 7: 08/23/18 03:47 08/23/18 03:47 Labs: Short CBC 08/23/18 Range/Units 03:47 WBC 4.5 (4.3-11.1) K/mcL Hgb 8.7 L (12.9-16.9) g/dL Hct 26.9 L (37.5-50.1) % Plt Count 147 (140-400) K/mcL Neutrophils # 3.0 (1.6-8.9) K/mcL BMP 08/23/18 03:47 Sodium 136 Potassium 4.1 Chloride 106 Carbon Dioxide 28 BUN 9 Creatinine 0.84 Glucose 90 Calcium 8.2 L - ABG Interpretation ABG results: PT/INR, D-dimer PT 13.5 Seconds (9.4-12.1) H 08/17/18 00:06 - VTE Documentation of Mechanical Device: Intermittent pneumatic compression device Consult Discharge Plan - Plan Referrals: NONE,PCP [Primary Care Provider] - (1) Fall Qualifiers: Encounter type: subsequent encounter Qualified Code(s): W19.XXXD - Unspecified fall, subsequent encounter (2) Failure to thrive Qualifiers: Failure to thrive age range: in adult Qualified Code(s): R62.7 - Adult failure to thrive (3) Anemia Qualifiers: Anemia type: unspecified type Qualified Code(s): D64.9 - Anemia, unspecified
[2018-08-23] MEDS: cefTRIAXone 1,000 MG in Water for inj. (sterile) 20 ML 10 ML IVP SCH (17:44)
[2018-08-24] MEDS: Aspirin 81 MG TAB.CHEW PO SCH (09:43)
--- NOTE | 2018-08-24 11:32 | Internal Med Progress Note ---
Hospitalist Progress Note - Encounter Date of Encounter: 08/24/18 Time of Encounter: 11:31 - Subjective Interval History: Patient was seen and examined at bedside. No changes overnight Currently presently confused oriented to name only following simple commands. Has been participating in physical therapy evaluated by speech therapy currently on honey thickened liquids - No s/sx of active bleeding. ECF Signature will need to revaluate placement for acceptance on Mon - Exam Vitals: Temp Pulse Resp BP Pulse Ox 97.4 F L 77 15 169/119 79 08/24/18 11:19 08/24/18 06:36 08/24/18 06:36 08/24/18 11:19 08/24/18 11:19 Exam: General: Alert and oriented to self and place, disoriented to date, situation. Pleasant cooperative HEENT:EOM, pupils equal, round and reactive. Cardiovascular:Normal S1 & S2, No JVD. Pulse regular. Lungs: clear to auscultation, no wheezes/rales Abdomen:Soft, non-tender, no rigidity. Extremities:No deformity or swelling Neurological:CN II-XII intact, Skin:Normal color, no rash, no lesions. Pulses:Carotid and radial pulses normal +2. Rest of the physical exam is non contributory - Assessment and Plan (1) Fall Current Visit: Yes Status: Acute Assessment and Plan: Patient has had multiple falls over the past 3 weeks. This could be multifactorial He has not been to a physician for several years unclear patient 's neurological baseline status, he may have undiagnosed dementia. CT of has negative for any acute intracranial abnormalities we will consult neurology to rule out any neurological processes It does appear that he has spinal stenosis which may be contributing to his falls-orthospine has been consulted Patient has been experiencing symptomatic anemia-with shortness of breath he did require blood transfusion does not appear to be actively bleeding we will continue to monitor closely continue with iron supplements consider Hem/onc consult Infectious process may be contributing to falls Patient did have a positive blood culture for gram-negative rods as a present there is no infectious source- he is afebrile with no leukocytosis urinalysis is normal chest x-ray with no acute process respiratory panel negative. 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 -according to neurology too small to be clinically significant - neurology recommending conservative measurements at this time Awaiting ortho spine recommendations cont fall precautions PT/OT ECF placement 08/23 Seen by neurology - per note undiagnosed dementia- advanced enough to compromise ability to function - as well as severe cervical myelopathy with myelomalacia at c5-c6 - which neurology is not convinced that surgical intervention would be beneficial 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 08/24 See above Continue with PT and OT Signature will need to reevaluate placement acceptance for Saturday (2) Failure to thrive Current Visit: Yes Status: Acute Assessment and Plan: Unclear if patient's baseline status, appears to have undiagnosed dementia -Imaging reveals cerebral volume loss and chronic microvascular ischemic white matter Presents following a fall at home, his brother reports that he has had multiple falls at home in the last couple of months; weakness, fatigue and failure to thrive chronic Does not appear to have any obvious source of infection TSH, B12/folate all within normal limits, TSH 1.581, folate 5.3, vitamin B12 1058 PT/Ot evaluation SW for placement 08/19 PTOT evaluation recommending ECF placement awaiting brothers choice of facility counseling services manager consulted for discharge planning Speech therapy recommending honey thickened liquids-patient did consume 50% of meal today we will stop IV fluids for now 08/20 Patient has been consuming part of his meals I am concerned about his dental hygiene which may be interfering with his capability to eat-will need follow-up with dentist as outpatient counseling services manager consult for discharge planning-will be discharged to ECF Speech therapy recommending honey thickened liquids patient did consume 80% of dinner tonight 08/21 Cont with speech therapy recommendations dietary consult for supplement 08/22 Speech therapy PT/OT ECF placement 08/23 Speech therapy PT/OT ECF placement -Signature will need to re-evaluate placement acceptance on Saturday. 08/24 Consuming between 30 and 80% of meals continue with feeding patient honey thickened liquid mechanical soft diet PT and OT (3) Anemia Current Visit: Yes Status: Acute Assessment and Plan: Normochromic and normocytic Unclear whether acute or chronic FOBT negative, hemodynamically stable no evidence of cirrhosis on imaging Iron saturation 15, serum iron 36, transferrin 169 We will start oral iron supplementation now H&H worsening overnight--6.9/21.5, no obvious episodes of bleeding Likely dilutional with IVF volume replacement Type and screen He get blood cultures sent Discussed with patient need for transfusion given the fact that he is symptomatic Transfuse PRBC 1 Recheck H&H this afternoon then every 6 after transfusion 08/19 no active bleeding noted hemoglobin stable at this time we will continue to monitor continue with iron supplements 08/20-we will continue to monitor closely again no active bleeding he is on iron supplements he has had 2 tarry stools-this may be related to iron supplements are we will recheck stools for occult blood 08/21 appears to be iron deficient cont iron supplements- Hgb down 7.8- occult stool neg x2 will consult GI for possible scope 08/22 Appears to be iron deficient Hgb stable at this time occult stool neg x2 - I did speak with Ghada Mcnair NP with GI about possible scope- we will defer at this time since he is stable and no active bleed EGD can be completed as an outpatient- immediately following my conversation with Lola Sandoval received a call from the patient's brother and next of kin Kishor Medina who would like to continue to monitor and treat conservatively and agrees with outpatient EGD as needed 08/23 Stable -Appears to be iron deficient Hgb stable at this time occult stool neg x2 - cont Iron supplements- conservative treatment 08/24 Continue with iron supplements (4) Abnormal CT of spine Current Visit: Yes Status: Acute Assessment and Plan: Suggestion of posteriorly positioned tip of clivus in relation to the odontoid process MRI C-spine for further evaluation-did reveal moderate to severe central spinal canal narrowing at C5-C6 mild central spinal canal narrowing at C4-C5 and C6-7 I did consult orthospine 08/21 awaiting orthospine recommendations 08/23 Seen by neurology - per note undiagnosed dementia- advanced enough to compromise ability to function - as well as severe cervical myelopathy with myelomalacia at c5-c6 - which neurology is not convinced that surgical intervention would be beneficial 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 08/24 See above Continue with PT and OT ECF placement -Signature will need to re-evaluate placement acceptance on Saturday. (5) Elevated serum creatinine Current Visit: Yes Status: Resolved Assessment and Plan: Unclear whether this represents acute kidney injury versus chronic kidney disease. Continue IVF, renal function improving, monitor S cr daily Avoid nephrotoxins. 08/20 Creatinine has improved 1.14 today with GFR greater than 60 IV fluids are currently off we will continue to monitor serum creatinine daily encourage oral intake Avoid nephrotoxins 08/21 resolved cont to monitor (6) DVT prophylaxis Current Visit: Yes Status: Acute Assessment and Plan: Continue SCD's, out of bed 3 times a day to chair, PT OT as tolerated (7) Positive blood culture Current Visit: Yes Status: Acute Assessment and Plan: 12 blood cultures positive for gram-negative rods. Patient has been afebrile with no leukocytosis urinalysis is negative respiratory pain O's negative chest x-ray with no acute process CT of abdomen obtained 08/17/18 Motion artifact limits detailed evaluation of the abdominal contents. Normal liver size and contour. No bile duct dilatation. Nonobstructive bilateral nephrolithiasis. Colonic diverticulosis without evidence of diverticulitis. Advanced thoracolumbar spondylosis with L5 spondylolysis and grade 1 spondylolisthesis. Low-attenuation cardiac blood pool may be seen with underlying anemia. -Empirically initiated on Rocephin. -I did redraw blood cultures-patient does have stage II ulcer on buttocks that is scabbed and does not appear to be infected as well as what appears to be a scratch on his left foot -I did curbside infectious disease who recommends continuation of antibiotic- awaiting results of second blood cultures suspect possible contamination- 08/22 As of today only one positive blood culture with gram-negative rods out of the 2 cultures drawn 08/18/18 Repeat blood cultures drawn 08/19/18 have been negative No signs of infection and leukocytosis and fever continue with Rocephin currently on day 3 08/23 As of today only one positive blood culture with gram-negative rods out of the 2 cultures drawn 08/18/18 Repeat blood cultures drawn 08/19/18 have been negative- suspect possible containment No signs of infection and leukocytosis and fever continue with Rocephin currently on day 3 08/24 See above No signs of infection and leukocytosis or fever continue with Rocephin day 4 (8) Hypertension Current Visit: Yes Status: Acute DVT Prophylaxis: SCD - Time Spent with Patient Total time spent is greater than 50% in coordination of care (as documented) at patient's floor/unit and/or counseling patient: Internal Medicine: Result - Labs CBC & Chem 7: 08/24/18 11:51 08/24/18 11:51 - ABG Interpretation ABG results: PT/INR, D-dimer PT 13.5 Seconds (9.4-12.1) H 08/17/18 00:06 - VTE Documentation of Mechanical Device: Intermittent pneumatic compression device Consult Discharge Plan - Plan Referrals: NONE,PCP [Primary Care Provider] - (1) Fall Qualifiers: Encounter type: subsequent encounter Qualified Code(s): W19.XXXD - Unspecified fall, subsequent encounter (2) Failure to thrive Qualifiers: Failure to thrive age range: in adult Qualified Code(s): R62.7 - Adult failure to thrive (3) Anemia Qualifiers: Anemia type: unspecified type Qualified Code(s): D64.9 - Anemia, unspecified
[2018-08-24 12:19] LABS: Basophils % 0.4 %; Eosinophils # 0.1 K/mcL (0.0-0.6); Hematocrit 28.4 % (37.5-50.1); Hemoglobin 9.2 g/dL (12.9-16.9); Immature Granulocytes % 0.6 % (0-4); Lymphocytes # 0.9 K/mcL (0.6-4.6); Lymphocytes % 17.4 %; Mean Corpuscular HGB Conc 32.4 g/dL (31.6-35.5); Mean Corpuscular Hemoglobin 30.1 pg (28.0-33.3); Mean Corpuscular Volume 92.8 fL (83.0-100.0); Mean Platelet Volume 9.8 fL (9.4-12.4); Monocytes # 0.3 K/mcL (0.0-1.3); Monocytes % 5.3 %; Neutrophils # 3.6 K/mcL (1.6-8.9); Platelet Count 165 K/mcL (140-400); Red Blood Count 3.06 M/mcL (4.19-5.50); Segmented Neutrophils % 74.3 %
[2018-08-24 12:40] LABS: BUN/Creatinine Ratio 11 (6-26); Blood Urea Nitrogen 10 mg/dL (8-23); Carbon Dioxide 29 mEq/L (23-29); Chloride 105 mEq/L (98-107); Glucose 94 mg/dL (70-105); Osmolality,Calculated 281 (280-300); Potassium 4.3 mEq/L (3.5-5.1); Sodium 136 mEq/L (136-145); eGFR For Non-African Americans > 60 (> 60)
[2018-08-24] MEDS: cefTRIAXone 1,000 MG in Water for inj. (sterile) 20 ML 10 ML IVP SCH (18:31)
[2018-08-25 04:27] LABS: Basophils % 0.4 %; Eosinophils # 0.1 K/mcL (0.0-0.6); Hematocrit 28.7 % (37.5-50.1); Immature Granulocytes % 0.4 % (0-4); Lymphocytes # 1.1 K/mcL (0.6-4.6); Lymphocytes % 21.6 %; Mean Corpuscular HGB Conc 31.4 g/dL (31.6-35.5); Mean Corpuscular Hemoglobin 29.5 pg (28.0-33.3); Mean Corpuscular Volume 94.1 fL (83.0-100.0); Mean Platelet Volume 9.8 fL (9.4-12.4); Monocytes # 0.3 K/mcL (0.0-1.3); Monocytes % 6.7 %; Neutrophils # 3.4 K/mcL (1.6-8.9); Platelet Count 164 K/mcL (140-400); Red Blood Count 3.05 M/mcL (4.19-5.50); Red Cell Distribution Width 16.1 % (11.5-14.5); Segmented Neutrophils % 68.9 %
[2018-08-25 04:47] LABS: BUN/Creatinine Ratio 13 (6-26); Blood Urea Nitrogen 11 mg/dL (8-23); Calcium 8.2 mg/dL (8.6-10.3); Carbon Dioxide 26 mEq/L (23-29); Chloride 105 mEq/L (98-107); Glucose 88 mg/dL (70-105); Osmolality,Calculated 279 (280-300); Potassium 4.2 mEq/L (3.5-5.1); Sodium 135 mEq/L (136-145); eGFR For Non-African Americans > 60 (> 60)
[2018-08-25] MEDS: Aspirin 81 MG TAB.CHEW PO SCH (09:13)
[2018-08-25 11:03] VITALS: BP 107/83
--- NOTE | 2018-08-25 12:13 | Discharge Summary ---
- NOTES TO OUTPATIENT PROVIDER Notes to Outpatient Provider: Monitor hemoglobin-currently on iron supplements occult stool negative 2-currently family requesting conservative measurements Orders not resulted at time of discharge: Pending orders 08/21/18 05:21 Vitamin B1 (Thiamine) Whole Bl AM 0400 Date of Encounter: 08/25/18 Time of Encounter: 12:11 - Discharge Diagnosis (1) Fall Priority: Primary Status: Acute Qualifiers: Encounter type: subsequent encounter Qualified Code(s): W19.XXXD - Unspecified fall, subsequent encounter (2) Failure to thrive Priority: Secondary Status: Acute Qualifiers: Failure to thrive age range: in adult Qualified Code(s): R62.7 - Adult failure to thrive (3) Anemia Priority: Secondary Status: Acute Qualifiers: Anemia type: unspecified type Qualified Code(s): D64.9 - Anemia, unspecified (4) Abnormal CT of spine Priority: Secondary Status: Acute (5) Elevated serum creatinine Priority: Secondary Status: Resolved (6) Positive blood culture Priority: Secondary Status: Acute (7) Hypertension Priority: Secondary Status: Acute Qualifiers: Hypertension type: essential hypertension Qualified Code(s): I10 - Essential (primary) hypertension Hospital course: Mr. Medina is a 67 year old male with no past medical history spot to the emergency department by his brother with complaints of recurrent falls. According to records patient has had multiple falls over the last 3 weeks with associated generalized weakness. Patient is no longer able to care for himself and his brother due to his own medical conditions cannot provide any care as well. Lab work was obtained urine tox screen was negative he did have an elevated creatinine as well as an anemia hemoglobin 8.1. Stool occult was negative imaging studies were largely unremarkable for any acute process except for slight posterior positioning of the tip of the clivus and relation to odontoid process. MRI cervical spine was completed which did reveal moderate to severe central spinal canal narrowing at C5-C6 associated myelomalacia mild central spinal canal narrowing at C4-C5. MRI of brain was also completed. 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 Neurology did see the patient who expressed that infarct was very small and was not clinically significant and overall impression was the patient has mixed dementia-both vascular and neurodegenerative component. [facility] did evaluate the patient for cervical stenosis myelomalacia of cervical cord. Recommending no surgical intervention at this time as well as rehabilitation. During admission patient did have a positive blood culture-which did reveal gram-negative rods repeat blood cultures were all negative urine culture was also negative. Patient had empirically being covered for Rocephin. Patient was seen by physical therapy and occupational therapy recommended ECF placement. He was also evaluated by speech therapy recommending nectar thickened liquids. During admission patient did have anemia appears to be iron deficient most likely related to poor oral intake. He had 2 negative occult stools I did discuss with the patient's brother about EGD however he would like to defer at this time and continue with conservative management. His hemoglobin remained stable throughout admission. visitor services specialist was consulted for ECF placement He has been hemodynamically stable he is ready for discharge at this time. He has been accepted at [facility] and will be discharged today - Time Spent with Patient Total time spent providing and/or coordinating discharge services: - Discharge Medications Home Medications: Aspirin 81 mg PO DAILY tab.chew 08/25/18 [Rx] Atorvastatin [Lipitor] 20 mg PO HS tablet 08/25/18 [Rx] Ferrous Sulfate 325 mg PO BIDWM tablet 08/25/18 [Rx] Lisinopril [Zestril] 5 mg PO DAILY tablet 08/25/18 [Rx] Allergies/Adverse Reactions: 3 Allergy/AdvReac Type Severity Reaction Status Date / Time No Known Allergies Allergy Verified 08/17/18 17:14 Date of admission: 08/18/18 14:32 Primary care physician: PCP NONE Consults: 08/20/18 20:29 Consult to Orthopedic Surgery [CONS] Routine Consulting Provider: [facility] Reason for Consult: central spine canal narrowing - falls Time Notified: 20:38 Call Completed: Yes 08/20/18 20:40 Consult to Neurology [CONS] Routine Consulting Provider: [facility] Reason for Consult: falls Time Notified: 20:40 Call Completed: Yes 08/21/18 15:23 dietary consult [Consult to Nutrition] [CONS] Routine Comment: Consulting Provider: NUTRITION Reason for Dietary Consult: PO Supplementation Discharging clinician: Tori Ray Anticipated date of discharge: 08/25/18 - Constitutional Vitals: Temp Pulse Resp BP Pulse Ox 97.5 F L 80 18 107/83 96 08/25/18 10:58 08/25/18 10:58 08/25/18 10:58 08/25/18 10:58 08/25/18 10:58 General appearance: Present: A&O X 1 Exam: General: Alert and oriented to self and place, disoriented to date, situation. Pleasant cooperative HEENT:EOM, pupils equal, round and reactive. Cardiovascular:Normal S1 & S2, No JVD. Pulse regular. Lungs: clear to auscultation, no wheezes/rales Abdomen:Soft, non-tender, no rigidity. Extremities:No deformity or swelling Neurological:CN II-XII intact, Skin:Normal color, no rash, no lesions. Pulses:Carotid and radial pulses normal +2. Rest of the physical exam is non contributory - Head Head exam: Present: atraumatic, normocephalic - Eye Eye exam: Present: PERRL, conjuntiva pink, sclera anicteric Pupils: Present: PERRL - Neck Neck exam general surgery: Present: supple, trachea midline. Absent: lymphadenopathy - Respiratory Respiratory exam: Present: CTAB. Absent: accessory muscle use, rales, rhonchi, wheezes - Cardiovascular Cardiovascular exam: Present: RRR, +S1, +S2. Absent: diastolic murmur, gallop, rubs, systolic murmur - GI/Abdominal GI/Abdominal exam: Present: normal bowel sounds, soft, no peritoneal signs. Absent: distended, tenderness - Extremities Exam Extremities exam: Present: warm, radial pulses palpable and symmetrical. Absent : calf tenderness, cyanotic, pedal edema - Neurological Exam Neurological exam: Present: CN II-XII intact, oriented X3, no focal deficits. Absent: pronater drift, facial droop, speech deficit - Skin Skin exam: Present: dry, intact - Patient Status Disposition: Transfer SNF Condition: Good Functional capacity at discharge: uses cane/walker Overall status at discharge: patient is back to baseline - Discharge Instructions Instructions: Anemia (GEN) Follow Up With: NONE,PCP [Primary Care Provider] - Additional Instructions: Follow-up appointments: If there is not an appointment listed below, please call your physician and schedule a follow-up appointment. If you have congestive heart failure and your symptoms return, make an appointment with your physician. Medication List: Carry an up to date list of medications you are taking at all time. We have given you an updated medication list including any new medications that you have been prescribed. Please provide that list to your primary provider Symptoms: If your condition changes or you experience any of the following symptoms, notify your physician immediately: Unusual or worsening pain, fever, persistent nausea and vomiting, bleeding, increase in swelling (especially in your legs), sudden weight gain, extreme dizziness, chest pain, increased drainage or redness from a wound or incision. Go to the emergency department if you experience a problem with breathing. Weights: If you have a history of swelling or shortness of breath, weigh yourself daily and notify your physician if you have a weight gain of two or more pounds in one day or 5 or more pounds in a week. If you experience any of the warning signs for stroke: Sudden numbness or weakness of the face, arm or leg; especially on one side of the body, sudden confusion, trouble speaking or understanding, sudden trouble seeing in one or both eyes, sudden trouble walking, dizziness, loss of balance or coordination, sudden sever headache with no cause; Call 911 or go to the emergency room. Stroke is a medical emergency. Some risk factors for stroke: Age, cigarette smoking, diabetes, excessive alcohol consumption, family history , high blood pressure, overweight, physical inactivity, prior stroke, heart attack, diagnosis of carotid artery stenosis or other artery disease. If you smoke, STOP: Smoking or tobacco use significantly increases your risk of heart and lung disease. Your chance of disease greatly increases if you continue to smoke. For more information, call the [place] tobacco quit line for smoking cessation QUIT-NOW ( ) - Diet and Activity Activity: as per physical therapy Diet: other - VTE Documentation of Mechanical Device: Intermittent pneumatic compression device
--- NOTE | 2018-08-25 12:51 | Physician Discharge Referral ---
ExtendedCare Referral Info Transfer To: [facility] Provider in Charge: Tori Ray Provider in Charge after Transfer: PCP Institutional Level of Care: Skilled - Diagnosis (1) Fall Priority: Primary Status: Acute (2) Failure to thrive Priority: Secondary Status: Acute (3) Anemia Priority: Secondary Status: Acute (4) Abnormal CT of spine Priority: Secondary Status: Acute (5) Elevated serum creatinine Priority: Secondary Status: Resolved (6) Positive blood culture Priority: Secondary Status: Acute (7) Hypertension Priority: Secondary Status: Acute - Transfer Medications Home Medications: Aspirin 81 mg PO DAILY tab.chew 08/25/18 [Rx] Atorvastatin [Lipitor] 20 mg PO HS tablet 08/25/18 [Rx] Ferrous Sulfate 325 mg PO BIDWM tablet 08/25/18 [Rx] Lisinopril [Zestril] 5 mg PO DAILY tablet 08/25/18 [Rx] Allergies/Adverse Reactions: 3 Allergy/AdvReac Type Severity Reaction Status Date / Time No Known Allergies Allergy Verified 08/17/18 17:14 - Respiratory Orders Smoking Cessation: Smoking cessation has been advised. For more information, call the [place] Tobacco Quit Line at 6-312-WQWO-NOW. - Ancillary Orders May use pressure relief devices daily prn - Mobility Orders Ambulate - Rehabiliation Orders Rehab Potential: Fair Rehab Orders: Evaluation for Physical Therapy, Evaluation for Occupational Therapy - Diet Orders Mechanical Soft ([place] thickened liquids) CERTIFICATION: I certify that the transfer of the above named patient to an Extended Care Facility is necessary for the continuing treatment of the diagnosis listed. The above information is true and accurate reflection of patient's current condition. Confidential - Redisclosure prohibited without a patient's written consent.
== END 2018-08-25 14:01 | DRG 56 ==
LOC: EMEROOARM 23:53 → 3BNU 23:53 → SUATTDRO 08-17 03:51 → 3BNU 08-17 05:26
PROVIDERS: ADMIT Family Medicine; ATTEND Internal Medicine